=== PATIENT | female | born 1950 | race Caucasian/White ===

== ENCOUNTER 2021-11-25 08:31 | Outpatient (REF) | payer MEDICARE, SELFPAY ==
[2021-11-25 12:31] LABS: TSH reflex Free T4 1.36 uIU/mL (0.32-4.0)
[2021-11-25 12:39] LABS: Alanine Aminotransferase 18 U/L (0-31); Albumin Level 4.4 g/dL (3.5-5.0); Alkaline Phosphatase 68 U/L (39-117); Anion Gap 13 (12-20); Aspartate Amino Transferase 20 U/L (5-31); Bilirubin Total 0.4 mg/dL (0.0-1.0); Blood Urea Nitrogen 18 mg/dL (9-16); Calcium 9.8 mg/dL (8.4-10.2); Carbon Dioxide 24 mmol/L (22-29); Chloride 107 mmol/L (96-108); Cholesterol 170 mg/dL; Estimated Glomerular Filt Rate > 60; Glucose Fasting 105 mg/dL (60-99); HDL Cholesterol 63 mg/dL; LDL Cholesterol Calculated 94 mg/dl; Potassium 4.4 mmol/L (3.3-5.1); Sodium 140 mmol/L (135-145); Triglycerides 66 mg/dL
== END 2021-11-25 08:32 | disposition home or self-care (01) ==
LOC: HO.WFDLDS 08:31
PROVIDERS: Visit Provider Family Medicine
DX: Z00.00 Encounter for general adult medical examination without abnormal findings (principal); Z13.220 Encounter for screening for lipoid disorders; Z13.29 Encounter for screening for other suspected endocrine disorder
CPT/HCPCS: 36415; 80053; 80061; 84443

== ENCOUNTER 2024-07-07 08:53 | Outpatient (AMB) | payer MEDICARE, SELFPAY ==
--- NOTE | 2024-07-07 09:00 | A.OFFPC_ITS ---
Vital Signs 07/07/24 09:03 07/07/24 09:30 Height 5 ft 3.39 in Weight 147 lb BMI 25.7 BP 136/86 Blood Pressure Location Lt brachial Position Sitting Respiration 14 Pulse 116 H 96 Pulse Source Pulse Oximeter Temp 98.9 F Temp Source Oral Pulse Oximetry (%) 98 Oxygen Delivery Method Room Air Intake Visit Reasons: Follow Up Intake Note: New patient visit Chlorine Cell Tender Required: No Allergies No Known Allergies Allergy (Verified 07/07/24 09:00) Tobacco use date assessed: 07/07/24 Last assessed Fall Risk: 07/07/24 Dental Screening Dental Screen Date: 07/07/24 Did you have a dental visit in the last 12 months?: No Did you have a dental problem in the last 6 months where you did not have access to dental care?: No Was dental information given to patient?: Patient declined (Has dentures) HPI HPI Comments History of Present Illness Details This is a 74-year-old female with a past medical history of carotid artery stenosis, elevated fasting glucose, heart murmur and mesenteric ischemia presenting to [facility] care. She was a patient of Dr. Veliz and then transferred to [facility] and is reestablishing with [facility]. Mesenteric ischemia-11 years ago while in [place] s/p mesenteric artery stent. Left carotid artery occlusion-since 50s. She was told it was not amenable to surgery. Per transfer records 2020 also had 50% right carotid artery stenosis in 2019. She does not see vascular. She was referred by Dr. Reddy, but she did not go to the appointment. She is on Plavix and rosuvastatin. She had a physical in January this year. Records transfer pending. Patient said she had a full panel of lab work done at that time, and she was informed that all of the results were satisfactory. Elevated fasting glucose-no history of DM per patient. Heart murmur-reports EKG was normal at her physical this year. Denies CP and dizziness and SOB. She saw cardiology in [place], and she believes that is the last time she had an echocardiogram. She had a mammogram about 6 months ago. She had to go back for additional images. She has another appointment with [facility] mammography in 10/21/2024. She reports colonosocpy is up to date. She says HR and BP are a little elevated. She had a rough morning and was anxious to come in today. ROS: Constitutional: No unexplained weight loss, fever, chills, fatigue or night sweats. Respiratory: No shortness of breath, cough or sputum production. Cardiovascular: No chest pain, chest pressure or chest discomfort. No palpitations or pedal edema. Gastrointestinal: No anorexia, nausea, vomiting or diarrhea. No abdominal pain or blood in stool. Neurologic: No headache, dizziness, syncope, unilateral weakness, ataxia, numbness or tingling in the extremities. Psychiatric: No depression or anxiety Physical exam: Constitutional: Alert, in no distress. Head: Normocephalic. Eyes: Pupils are equal, round and reactive to light. Extraocular muscles intact. Neck: Supple, Full range of motion. No lymphadenopathy. No palpable thyroid masses. Respiratory: Clear to auscultation. Cardiovascular: S1 S2 regular. III/ systolic murmur heard best over the right sternal border. Gastrointestinal: Abdomen soft, non-tender, non-distended. Normal bowel sounds. No palpable masses. Extremities: Warm and well perfused. No clubbing, cyanosis or edema. Bilateral lower extremity varicose veins. [facility] Medical History (Updated 07/07/24 @ 13:03 by ARVIND Buchanan) Atherosclerosis of both carotid arteries Surgical History History of heart artery stent Social History Housing: House Alcohol intake: never Patient Tobacco Use Status: Current everyday Tobacco user Cigarettes Per Day: 3 Years Smoked: 40 e-Cigarette/Vaping Use: Never Used Second Hand Smoke Exposure: Yes service: No Current occupational status: retired Current occupational exposures/hazards: No Cognitive needs: No Hearing needs: No Vision needs: Yes (Glasses) Questionnaire PHQ-9 Over the last 2 weeks, how often have you been bothered by any of the following problems? 1. Little interest or pleasure in doing things: not at all 2. Feeling down, depressed, or hopeless: not at all 3. Trouble falling or staying asleep, or sleeping too much: not at all 4. Feeling tired or having little energy: not at all 5. Poor appetite or overeating: not at all 6. Feeling bad about yourself - or that you are a failure or have let yourself or your family down: not at all 7. Trouble concentrating on things, such as reading the newspaper or watching television: not at all 8. Moving or speaking so slowly that other people could have noticed. Or the opposite - being so fidgety or restless that you have been moving around a lot more than usual: not at all 9. Thoughts that you would be better off or of hurting yourself in some way: not at all Total score: 0 Depression Screening Interpretation: Negative Depression Screening Done: Yes 90566 - PHQ-9 Billing: Yes Source: Developed by Drs. Leonard Guerra, Jody Partida, Jorge Proctor and colleagues, with an educational aakash from [employer]. Thrive Questionnaire Date Thrive assessed: 07/07/24 I am a: Patient What is your living situation today?: I have a steady place to live Within the past 12 months, did the food you bought not last and you didn't have the money to get more?: Never true Within the past 12 months, did you worry whether your food would run out before you got money to buy more?: Never true Do you have trouble paying for medicines?: No Do you have trouble getting transportation to medical appointments?: No Do you have trouble taking care of your child, family member or friend?: No Do you have trouble with day-to-day activities such as bathing, preparing meals, shopping, managing finances, etc.?: No Are you currently unemployed and looking for a job?: No Are you interested in more education?: No Please select the resources that you would like help with: None Currently or been in a relationship where the following occur: No concerns reported THRIVE Score: 0 AUDIT C Alcohol Use Questionnaire (AUDIT-C) 1. How often do you have a drink containing alcohol?: Never 3. How often do you have six or more drinks on one occasion?: Never Total Score: 0 CHAITANYA-7 AMB Questionnaire CHAITANYA-7 Date CHAITANYA - 7 assessed: 07/07/24 Feeling nervous, anxious, or on edge: 0 = Not at all Not being able to stop or control worryin = Not at all Worrying too much about different things: 0 = Not at all Trouble relaxin = Not at all Being so restless that it is hard to sit still: 0 = Not at all Becoming easily annoyed or irritable: 0 = Not at all Feeling afraid as if something awful might happen: 0 = Not at all Total CHAITANYA-7 score (0-4 normal; 5-9 mild; 10-14 moderate; 15-21 severe): 0 Source: Developed by Drs. Leonard Guerra, Jody Partida, Jorge Proctor and colleagues, with an educational aakash from [employer]. CHAITANYA-7 Assessment Billing CHAITANYA-7 Assessment Tool: CHAITANYA-7 Assessment [id number] Physical exam (Primary Care) Vital Signs: Last Vital Signs Temp 98.9 F 07/07/24 09:03 Pulse 96 07/07/24 09:30 Resp 14 07/07/24 09:03 BP 136/86 07/07/24 09:03 Pulse Ox 98 07/07/24 09:03 Oxygen Delivery Method Room Air 07/07/24 09:03 BMI result Body Mass Index 25.7 Tobacco/Smoking Status: Tobacco use Status Tobacco use date assessed 07/07/24 07/07/24 09:08 Patient Tobacco Use Status Current everyday Tobacco 07/07/24 09:08 e-Cigarette/Vaping Use Never Used 07/07/24 09:08 PHQ-9: PHQ-9 Score PHQ-9: Total score 0 07/07/24 09:42 Depression Screening Interpretation: Negative Thrive Assessment: Date of Thrive Assessment Date Thrive assessed 07/07/24 07/07/24 09:42 Currently or been in a relationship where the following occur: No concerns reported Assessment and Plan Assessment & Plan (1) Atherosclerosis of both carotid arteries: Code(s): I65.23 - Occlusion and stenosis of bilateral carotid arteries (2) Mesenteric ischemia: Code(s): K55.9 - Vascular disorder of intestine, unspecified (3) Murmur: Code(s): R01.1 - Cardiac murmur, unspecified (4) Hyperlipidemia: Code(s): E78.5 - Hyperlipidemia, unspecified Qualifiers: Hyperlipidemia type: pure hypercholesterolemia Qualified Code(s): E78.00 - Pure hypercholesterolemia, unspecified Plan I refilled the patient's medications. Referred to vascular surgery. I explained the importance of following with the vascular specialist given her history. Echocardiogram ordered for evaluation of heart murmur. She signed a release today for her medical records. We will need to review her most recent labs from [facility]. Continue avoidance of smoking and alcohol. Recommended low-cholesterol diet and cardiovascular exercise 5 days per week. Blood pressure mildly elevated today which she attributes to the course of her morning. Monitor. Schedule physical exam 03/21/2024. Orders: Orders CA echo transthoracic complete Today R01.1 - Cardiac murmur, unspecified Referrals Vascular Surgery Referral I65.23 - Occlusion and stenosis of bilateral carotid arteries Medications: Refilled clopidogrel 75 mg PO DAILY 90 days 90 tabs 3RF rosuvastatin 20 mg PO BEDTIME 90 days 90 tabs 3RF Coding Level of Care Code Est Pt Level 4 (48413) Complex EM visit Add On G2211 Diagnoses Atherosclerosis of both carotid arteries I65.23 Mesenteric ischemia K55.9 Murmur R01.1 Pure hypercholesterolemia E78.00 Hyperlipidemia type: pure hypercholesterolemia Additional Codes CHAITANYA-7 Assessment Billing - CHAITANYA-7 Assessment Tool: CHAITANYA-7 Assessment [id number] ([id number])
[2024-07-07 09:03] VITALS: BP 136/86; PULSE 116; RESP 14; TEMP 37.2; O2SAT 98; BMI 25.7
[2024-07-07 09:30] VITALS: PULSE 96
== END 2024-07-07 11:16 | disposition home or self-care (01) ==
PROVIDERS: PCP Family Medicine; Visit Provider Physician Assistant Medical
DX: I65.23 Occlusion and stenosis of bilateral carotid arteries (principal); K55.9 Vascular disorder of intestine, unspecified; R01.1 Cardiac murmur, unspecified; E78.00 Pure hypercholesterolemia, unspecified
CPT/HCPCS: 99214; G2211

== ENCOUNTER 2025-03-06 10:19 | Outpatient (AMB) | payer MEDICARE, SELFPAY ==
--- NOTE | 2025-03-06 10:26 | A.OFFPC_ITS ---
Vital Signs 03/06/25 10:30 Height 5 ft 3 in Weight 149 lb 4 oz BMI 26.4 BP 120/72 Blood Pressure Location Rt brachial Position Sitting Respiration 14 Pulse 99 Pulse Source Pulse Oximeter Temp 98.6 F Temp Source Temporal Artery Scan Pulse Oximetry (%) 99 Oxygen Delivery Method Room Air Intake Visit Reasons: Annual PE - see comments Intake Note: Shaina presents in the office today for her annual physical. Allergies No Known Allergies Allergy (Verified 03/06/25 10:28) Tobacco use date assessed: 03/06/25 Fall risk assessment: No Falls in past year Last assessed Fall Risk: 03/06/25 Dental Screening Dental Screen Date: 03/06/25 Did you have a dental visit in the last 12 months?: No Did you have a dental problem in the last 6 months where you did not have access to dental care?: No Was dental information given to patient?: Patient declined HPI HPI Comments History of Present Illness Details This is a 75-year-old female with a past medical history of carotid artery stenosis, elevated fasting glucose, heart murmur and mesenteric ischemia presenting for a physical exam. She endorses a problem with her left ear. She endorses mild discomfort, discharge with a slightly bad odor for 1-2 weeks. She tried flushing with peroxide and water. Denies hearing loss. Denies swimming. Denies fevers, chills or headaches. Mesenteric ischemia-11 years ago while in [place] s/p mesenteric artery stent. Left carotid artery occlusion-since 50s. She was told it was not amenable to surgery. Per transfer records 2020 also had 50% right carotid artery stenosis in 2019. She does not see vascular. I referred her, but she did not make the appointment. She is on Plavix and rosuvastatin and was questioning if she needs to continue t hem today. Elevated fasting glucose-no history of DM per patient. Heart murmur-reports EKG a year or 2 ago. Denies CP and dizziness and SOB. She saw cardiology in [place]. I ordered an echocardiogram, but she did not have this done. She had an abnormal mammogram in 2023, and she is following up with [facility] mammography every 6 months for surveillance imaging. He is unclear about what they were watching. She reports colonoscopy is up-to-date. She will try to obtain the record of this from home. Patient says her immunizations are up-to-date. She declines bone density exam. ROS: Constitutional: No unexplained weight loss, fever, chills, fatigue or night sweats. Eyes: No vision changes, blurry vision, double vision, eye pain, eye redness, eye discharge. ENT: No hearing loss, sneezing, congestion, runny nose or sore throat. See HPI. Respiratory: No shortness of breath, cough or sputum production. Cardiovascular: No chest pain, chest pressure or chest discomfort. No palpitations or pedal edema. Gastrointestinal: No anorexia, nausea, vomiting or diarrhea. No abdominal pain or blood in stool. Genitourinary: No dysuria, hematuria, urinary frequency. Neurologic: No headache, dizziness, syncope, unilateral weakness, ataxia, numbness or tingling in the extremities. Musculoskeletal: No muscle pain, back pain, joint pain or swelling. Hematologic/Lymphatics: No bleeding or bruising. No painful lymph nodes. Skin: No rash Endocrine: No cold or heat intolerance. No polyuria or polydipsia. Psychiatric: No depression or anxiety. No SI/HI. Physical exam: Constitutional: Alert, in no distress. Head: Normocephalic. Eyes: Pupils are equal, round and reactive to light. Extraocular muscles intact. Ear, Nose and Throat: Right canal clear and tympanic membrane normal. Left canal mildly swollen, mild maceration and erythema and whitish yellow debris, tympanic membrane intact, engel and translucent. Negative tech test bilaterally. Mastoids nontender bilaterally. Normal nasal mucosa. No nasal discharge. No oral lesions. Neck: Supple, Full range of motion. No lymphadenopathy. No palpable thyroid masses. Respiratory: Clear to auscultation. Cardiovascular: S1 S2 regular. III/ murmur. No carotid bruits. Gastrointestinal: Abdomen soft, non-tender, non-distended. Normal bowel sounds. No palpable masses. Neurologic: No focal neurological deficits. Symmetric patellar reflexes. Moves all extremities spontaneously. Sensation intact bilaterally. Skin: No rashes Musculoskeletal: No gross deformities. Normal range of motion. Extremities: Warm and well perfused. No clubbing, cyanosis or edema. Intact peripheral pulses bilaterally. Psychiatric: Normal mood and affect [facility] Medical History (Updated 03/07/25 @ 08:34 by ARVIND Buchanan) Abnormal mammogram Right-sided extracranial carotid artery stenosis Otitis externa, left Routine physical examination Atherosclerosis of both carotid arteries Surgical History History of heart artery stent Social History (Updated 03/06/25 @ 10:29 by Janet Deng [place]) Housing: House Alcohol intake: never Patient Tobacco Use Status: Current everyday Tobacco user Cigarettes Per Day: 3 Years Smoked: 40 e-Cigarette/Vaping Use: Never Used Second Hand Smoke Exposure: Yes service: No Current occupational status: retired Current occupational exposures/hazards: No Cognitive needs: No Hearing needs: No Vision needs: Yes (Glasses) Questionnaire PHQ-9 Over the last 2 weeks, how often have you been bothered by any of the following problems? 1. Little interest or pleasure in doing things: not at all 2. Feeling down, depressed, or hopeless: not at all 3. Trouble falling or staying asleep, or sleeping too much: not at all 4. Feeling tired or having little energy: not at all 5. Poor appetite or overeating: not at all 6. Feeling bad about yourself - or that you are a failure or have let yourself or your family down: not at all 7. Trouble concentrating on things, such as reading the newspaper or watching television: not at all 8. Moving or speaking so slowly that other people could have noticed. Or the opposite - being so fidgety or restless that you have been moving around a lot more than usual: not at all 9. Thoughts that you would be better off or of hurting yourself in some way: not at all Total score: 0 Depression Screening Interpretation: Negative Depression Screening Done: Yes 75225 - PHQ-9 Billing: Patient declined-do not bill Source: Developed by Drs. Leonard Guerra, Joyd Partida, Jorge Proctor and colleagues, with an educational aakash from [employer]. Thrive Questionnaire Date Thrive assessed: 03/06/25 I am a: Patient What is your living situation today?: I have a steady place to live Within the past 12 months, did the food you bought not last and you didn't have the money to get more?: Never true Within the past 12 months, did you worry whether your food would run out before you got money to buy more?: Never true Do you have trouble paying for medicines?: No Do you have trouble getting transportation to medical appointments?: Yes Do you have trouble paying your heating and electricity bill?: No Do you have trouble taking care of your child, family member or friend?: No Do you have trouble with day-to-day activities such as bathing, preparing meals, shopping, managing finances, etc.?: No Are you currently unemployed and looking for a job?: No Are you interested in more education?: No Please select the resources that you would like help with: None Currently or been in a relationship where the following occur: No concerns reported THRIVE Score: 1 AUDIT C Alcohol Use Questionnaire (AUDIT-C) 1. How often do you have a drink containing alcohol?: Never Total Score: 0 CHAITANYA-7 AMB Questionnaire CHAITANYA-7 Date CHAITANYA - 7 assessed: 03/06/25 Feeling nervous, anxious, or on edge: 0 = Not at all Not being able to stop or control worryin = Not at all Worrying too much about different things: 0 = Not at all Trouble relaxin = Not at all Being so restless that it is hard to sit still: 0 = Not at all Becoming easily annoyed or irritable: 0 = Not at all Feeling afraid as if something awful might happen: 0 = Not at all Total CHAITANYA-7 score (0-4 normal; 5-9 mild; 10-14 moderate; 15-21 severe): 0 Source: Developed by Drs. Leonard Guerra, Jody Partida, Jorge Proctor and colleagues, with an educational aakash from [employer]. CHAITANYA-7 Assessment Billing CHAITANYA-7 Assessment Tool: CHAITANYA-7 Assessment [id number] Physical exam (Primary Care) Vital Signs: Last Vital Signs Temp 98.6 F 03/06/25 10:30 Pulse 99 03/06/25 10:30 Resp 14 03/06/25 10:30 BP 120/72 03/06/25 10:30 Pulse Ox 99 03/06/25 10:30 Oxygen Delivery Method Room Air 03/06/25 10:30 BMI result Body Mass Index 26.4 Tobacco/Smoking Status: Tobacco use Status Tobacco use date assessed 03/06/25 03/06/25 10:33 Patient Tobacco Use Status Current everyday Tobacco 03/06/25 10:29 e-Cigarette/Vaping Use Never Used 03/06/25 10:29 PHQ-9: PHQ-9 Score PHQ-9: Total score 0 03/06/25 10:38 Depression Screening Interpretation: Negative Thrive Assessment: Date of Thrive Assessment Date Thrive assessed 03/06/25 03/06/25 10:33 Currently or been in a relationship where the following occur: No concerns reported Coding Level of Care Code Est Pt Prev Care >65y(06541) Diagnoses Acute otitis externa of left ear, unspecified type H60.502 Otitis externa type: unspecified type Chronicity: acute Atherosclerosis of both carotid arteries I65.23 Murmur R01.1 Elevated fasting glucose R73.01 Pure hypercholesterolemia E78.00 Hyperlipidemia type: pure hypercholesterolemia Routine physical examination Z00.00 Abnormal mammogram R92.8 Additional Codes CHAITANYA-7 Assessment Billing - CHAITANYA-7 Assessment Tool: CHAITANYA-7 Assessment [id number] ([id number]) Assessment & Plan Assessment & Plan (1) Otitis externa, left: Code(s): H60.92 - Unspecified otitis externa, left ear Category: Medical Qualifiers: Otitis externa type: unspecified type Chronicity: acute Qualified Code(s): H60.502 - Unspecified acute noninfective otitis externa, left ear (2) Atherosclerosis of both carotid arteries: Code(s): I65.23 - Occlusion and stenosis of bilateral carotid arteries Category: Medical (3) Murmur: Code(s): R01.1 - Cardiac murmur, unspecified Category: Medical (4) Elevated fasting glucose: Code(s): R73.01 - Impaired fasting glucose Category: Medical (5) Hyperlipidemia: Code(s): E78.5 - Hyperlipidemia, unspecified Category: Medical Qualifiers: Hyperlipidemia type: pure hypercholesterolemia Qualified Code(s): E78.00 - Pure hypercholesterolemia, unspecified (6) Routine physical examination: Code(s): Z00.00 - Encounter for general adult medical examination without abnormal findings Category: Medical (7) Abnormal mammogram: Code(s): R92.8 - Other abnormal and inconclusive findings on diagnostic imaging of breast Category: Medical Plan Patient is seen today for a routine physical. As part of this visit we reviewed the following issues, which are considered and essential part of preventative health in this age group: - Breast Cancer screening - Annual Perinatal Specialist exam - Screening for colon cancer - Blood pressure screening - Cholesterol screening - Osteoporosis prevention including calcium/vitamin D intake, weight bearing exercise & smoking cessation - Nutritional and exercise counseling - Counseling of injury prevention including fire prevention, smoke alarms and seat belt usage - Screening for depressio - Education about skin cancer - Recommendations about immunizations - Recommendation of an eye exam - Screening for substance abuse - Genetic cancer risk screening Patient will be treated with Ciprodex drops. Administration reviewed. Advised to follow up if symptoms are not beginning to improve after 48-72 hours or if they do not resolve entirely with a course of medication. Warning signs warranting ER evaluation reviewed. She will have her fasting lab work completed. Advised patient to remain on statin and Plavix. I discussed the importance of following up with vascular surgery, and she understands, and she agrees to a referral to [facility]. I also explained the importance of having the echocardiogram for evaluation of her heart murmur. Once resulted we will discuss referral to Cardiology. She will have this done at [facility]. Declined follow up for recheck. Physical is due in a year. Orders: Orders Hemoglobin A1c 03/06/25 Z00.00 - Encounter for general adult medical examination without abnormal findings Comprehensive Met. Panel 03/06/25 I65.22 - Occlusion and stenosis of left carotid artery, K55.9 - Vascular disorder of intestine, unspecified, Z00.00 - Encounter for general adult medical examination without abnormal findings Lipid Panel 03/06/25 E78.5 - Hyperlipidemia, unspecified, I65.22 - Occlusion and stenosis of left carotid artery, K55.9 - Vascular disorder of intestine, unspecified, Z00.00 - Encounter for general adult medical examination without abnormal findings Complete Blood Count no Diff 03/06/25 I65.22 - Occlusion and stenosis of left carotid artery, K55.9 - Vascular disorder of intestine, unspecified, Z00.00 - Encounter for general adult medical examination without abnormal findings CA echo transthoracic complete Today R01.1 - Cardiac murmur, unspecified Referrals Vascular Surgery Referral I65.21 - Occlusion and stenosis of right carotid artery, I65.22 - Occlusion and stenosis of left carotid artery Medications: New ciprofloxacin-dexamethasone 0.3-0.1 % 4 drps otic (ear) left BID 7 days 7.5 mL 0RF Refilled clopidogrel 75 mg PO DAILY 90 days 90 tabs 3RF rosuvastatin 20 mg PO BEDTIME 90 days 90 tabs 3RF
[2025-03-06 10:30] VITALS: BP 120/72; PULSE 99; RESP 14; TEMP 37; O2SAT 99; BMI 26.4
--- OUTSIDE RECORDS SUMMARY | 2025-03-06 11:38 | XMS_ITS | Patient Health Record ---
Demographics Address [address] [place] [address] Mobile Preferred Language en Marital Status Unknown Jainism Affiliation Unknown Race Unknown Ethnic Group Unknown Author Organization [facility] Address [address] [place] [id number] Care Team Providers Care Biology Instructor Name Role Phone [facility] Primary Care Provider [phone] Sunil Corrina Mota Unavailable [phone] ALLERGIES No Known Allergies REASON FOR REFERRAL No Information MEDICATIONS Medication SIG (Take, Route, Frequency, Duration) Notes Start Date End Date Status Rosuvastatin Calcium 20 MG 1 tablet Oral ly Once a day for 90 days Active Plavix 75 MG 1 tablet Orally Once a day for 90 days Active Multi Vitamin - 1 tablet Orally Once a day Active Ciprofloxacin HCl 0.3 % 3 drops in left ear Ophthalmic two times a day for 7 days 02/11/2023 Not-Taking SOCIAL HISTORY Tobacco Use: Social History Observation Description Date Details (start date - stop date) Current Smoker NA - NA Sex Assigned At : Social History Observation Description Sex Assigned At Female Household Question Answer Notes Marital status: Number of adults in household: 2 Tobacco Use/Smoking Question Answer Notes Tobacco use: current smoker How many cigarettes a day do you smoke? 5 or les s Section Notes: Lives in [place], [place] with sister. Lives in [place], [place] with sister. Lives in [place] with sister. Lives in [place] with sister. PROBLEMS Problem Type ICD Code Onset Dates Problem Status W/U Status Risk SNOMED Code Notes Problem Mixed hyperlipidemia (E78.2) Active confirmed 574550000 Problem Murmur, cardiac (R01.1) Active confirmed 61153374 Problem Elevated blood pressure reading without diagnosis of hypertension (R03.0) Active confirmed 353868574 Problem Petechial rash (R23.3) Active confirmed [id number] Encounters Encounter Location Date Provider Diagnosis [facility], [address] [phone] 08/16/2024 Corrina Mota PLAN OF TREATMENT Pending Test Test Name Order Date Ultrasound : Leg, right 01/26/2024 X ray : Knee, right 01/26/2024 Echocardiogram 08/19/2023 DEXA 08/19/2023 Electrocardiogram (EKG) 02/11/2023 MAMMOGRAM, SCREENING 01/26/2024 Future Test Test Name Order Date 1,25OH VITAMIN D 08/19/2023 APOLIPOPROTEIN B 08/19/2023 CBC (COMPLETE BLOOD COUNT) WITH DIFF COMPREHENSIVE METABOLIC PANEL 08/19/2023 CRP, HIGH SENSITIVITY 08/19/2023 INSULIN 08/19/2023 MICROALBUMIN, URINE 08/19/2023 URIC ACID 08/19/2023 LIPID PANEL 08/19/2023 THYROID PANEL 08/19/2023 UA W/REFLEX CULTURE 08/19/2023 Insurance Providers Payer Name Payer Address Payer Phone Subscriber Number Group Number Insured Name Patient Relationship to Insured Coverage Start Date Coverage End Date [facility] Medicare Advantage [address] [address] [place], [place] [id number] LISA COYLE Self - patient is the insured MEDICAL (GENERAL) HISTORY Medical History History ICD Code chicken pox as a child pneumonia Surgical History Surgery Date(Month/Year)
--- OUTSIDE RECORDS SUMMARY | 2025-03-06 11:38 | XMS_ITS ---
Demographics Address [address] [place] [address] Mobile Preferred Language en Marital Status Unknown Mormonism Affiliation Unknown Race Unknown Ethnic Group Unknown Author Organization [facility], [facility] Address [address] [place] [id number] Care Team Providers Care Helper Driver Name Role Phone BOZENA [facility] Primary Care Provider [phone] Sunil Corrina Mota [phone] REASON FOR VISIT Left ear infection MEDICATIONS Medication SIG (Take, Route, Frequency, Duration) Notes Start Date End Date Status Rosuvastatin Calcium 20 MG 1 tablet Orally Once a day for 90 days Active Plavix 75 MG 1 tablet Orally Once a day for 90 days Active Multi Vitamin - 1 tablet Orally Once a day Active Ciprofloxacin HCl 0.3 % 3 drops in left ear Ophthalmic two times a day for 7 days 02/11/2023 Not-Taking Amoxicillin-Pot Clavulanate 875-125 MG 1 tablet Orally every 12 hrs for 5 days 02/23/2024 02/26/2024 Active SOCIAL HISTORY Sex Assigned At : Social History Observation Description Sex Assigned At Female Encounters Encounter Location Date Provider Diagnosis [facility], [address] [phone] 02/23/2024 Corrina Mota Acute left otitis media H66.92 ASSESSMENTS Encounter Date Diagnosis Assessment Notes Treatment Notes Treatment Clinical Notes Section Notes 02/23/2024 Acute left otitis media (ICD-10 - H66.92) PLAN OF TREATMENT Medication Medication Name Sig Start Date Stop Date Notes Amoxicillin-Pot Clavulanate 875-125 MG 1 tablet Orally every 12 hrs for 5 days 02/23/2024 02/26/2024 Progress Notes * JUJU COYLE:1950 ( 74 yo F)Acc No.[id number]:02/23/2024 Patient:??JONNA LISA :1950?Age:74 Y?Sex:Fe male Phone: Address:[address] [place] [address] * Refills?? Start Amoxicillin-Pot Clavulanate Tablet, 875-125 MG, Orally, 10 Tablet, 1 tablet, every 12 hrs, 5 days, Refills=0 Subjective: * Chief Complaints: * ?Left ear infection * Medical History:?? * Surgical History:?? * Hospitalization/Major Diagno stic Procedure:?? * Medications:??TakingMulti Vi tamin - Tablet 1 tablet Orally Once a day Rosuvastatin Calcium 20 MG Tablet 1 tablet Orally Once a day Plavix 75 MG Tablet 1 tablet Orally Once a day Taking Multi Vitamin - Tablet 1 tablet Orally Once a day Taking Rosuvastatin Calcium 20 MG Tablet 1 tablet Orally Once a day Taking Plavix 75 MG Tablet 1 tablet Orally Once a day Not-TakingCiprofloxacin HCl 0.3 % Solution 3 drops in left ear Ophthalmic two times a day Not-Taking Ciprofloxacin HCl 0.3 % Solution 3 drops in left ear Ophthalmic two times a day Objective: Assessment: * Assessment: 1.??Acute left otitis media - H66.92 (Primary)?? Plan: * Treatment: * Procedure Codes:?? * true * Date:??
--- OUTSIDE RECORDS SUMMARY | 2025-03-06 11:39 | XMS_ITS ---
Demographics Address [address] [place] [address] Mobile Preferred Language en Marital Status Unknown Faith Affiliation Unknown Race Unknown Ethnic Group Unknown Author Organization [facility], [facility] Address [address], [place] [id number] Care Team Providers Care Oral Surgeon Name Role Phone [facility] Primary Care Provider [phone] Corrina Mota [phone] REASON FOR VISIT f/u 6M wellness SOCIAL HISTORY Sex Assigned At : Social History Observation Description Sex Assigned At Female Encounters Encounter Location Date Provider Diagnosis [facility], [facility] [address], [place] [phone] 08/16/2024 Corrina Mota PLAN OF TREATMENT No Information Progress Notes * LIVIANABILA BAUERANAB:1950 ( 75 yo F)Acc No.[id number]:08/16/2024 Progress Notes Patient:??LIVIANABILA BAUERA Provider:??Corrina Mota DNP :1950?Age:74 Y?Sex:Fe male Date:08/16/2024 Phone: Address: [address] [id number] Pcp:[facility] Subjective: * Chief Complaints: * ?1. f/u 6M wellness. * Medical History:?? Objective: Assessment: Plan: * Treatment: * Billing Information: * Visit Code:?? * Procedure Codes:?? * Sign off status: Pending * Provider:??Corrina Mota DNP Date:??
== END 2025-03-06 11:08 | disposition home or self-care (01) ==
PROVIDERS: PCP Physician Assistant Medical; Visit Provider Physician Assistant Medical
DX: H60.502 Unspecified acute noninfective otitis externa, left ear (principal); I65.23 Occlusion and stenosis of bilateral carotid arteries; R01.1 Cardiac murmur, unspecified; R73.01 Impaired fasting glucose; E78.00 Pure hypercholesterolemia, unspecified; Z00.00 Encounter for general adult medical examination without abnormal findings; R92.8 Other abnormal and inconclusive findings on diagnostic imaging of breast

== ENCOUNTER → 2025-03-06 10:19 | Outpatient (BNVA) | payer MEDICARE, SELFPAY | PROVIDERS: PCP Physician Assistant Medical; Visit Provider Physician Assistant Medical | DX: Z00.00 Encounter for general adult medical examination without abnormal findings (principal); H60.502 Unspecified acute noninfective otitis externa, left ear; I65.23 Occlusion and stenosis of bilateral carotid arteries; R01.1 Cardiac murmur, unspecified; R73.01 Impaired fasting glucose; E78.00 Pure hypercholesterolemia, unspecified; R92.8 Other abnormal and inconclusive findings on diagnostic imaging of breast; Z79.02 Long term (current) use of antithrombotics/antiplatelets; Z79.899 Other long term (current) drug therapy | CPT/HCPCS: 96127; 99397 ==

== ENCOUNTER 2025-03-13 08:17 | Outpatient (REF) | payer MEDICARE, SELFPAY ==
[2025-03-13 11:22] LABS: Hematocrit 40.9 % (37.0-47.0); Hemoglobin 13.5 g/dl (12.0-16.0); Mean Corpuscular Hemoglobin 30.8 pg (27.0-33.0); Mean Corpuscular Volume 93.2 fL (80.0-98.0); Mean Platelet Volume 10.5 fL (9.4-12.3); Platelet Count 242 X10*3/uL (160-400); Red Blood Count 4.39 X10*6/uL (4.20-5.50); Red Cell Distribution Width 14.2 % (11.0-16.0); White Blood Count 8.3 X10*3/uL (4.8-10.8)
[2025-03-13 11:35] LABS: Estimated Average Glucose 105 mg/dL; Hemoglobin A1C 121.4383 umol/L; Hemoglobin A1c % 5.3 % (<6.0); Total Hemoglobin (HGBA1C) 3585.8831 umol/L
[2025-03-13 13:42] LABS: Alanine Aminotransferase 22 U/L (0-31); Albumin Level 4.2 g/dL (3.5-5.0); Anion Gap 12 (12-20); Aspartate Amino Transferase 29 U/L (5-31); Bilirubin Total 0.2 mg/dL (0.0-1.0); Blood Urea Nitrogen 24 mg/dL (9-16); Calcium 9.5 mg/dL (8.4-10.2); Carbon Dioxide 25 mmol/L (22-29); Chloride 108 mmol/L (96-108); Cholesterol 154 mg/dL (<200); Estimated Glomerular Filt Rate > 60; Glucose Random 103 mg/dL (60-115); HDL Cholesterol 69 mg/dL (>40); LDL Cholesterol Calculated 77 mg/dL (<100); Potassium 4.2 mmol/L (3.3-5.1); Sodium 141 mmol/L (135-145); Total Protein 6.6 g/dL (6.5-8.0); Triglycerides 41 mg/dL (<150)
[2025-03-13 15:18] LABS: Alkaline Phosphatase 56 U/L (39-117)
== END 2025-03-13 08:18 | disposition home or self-care (01) ==
LOC: HO.WFDLDS 08:17
PROVIDERS: Visit Provider Physician Assistant Medical
DX: Z00.00 Encounter for general adult medical examination without abnormal findings (principal); E78.5 Hyperlipidemia, unspecified; K55.9 Vascular disorder of intestine, unspecified; I65.22 Occlusion and stenosis of left carotid artery; Z13.1 Encounter for screening for diabetes mellitus
CPT/HCPCS: 36415; 80053; 80061; 83036; 85027

== ENCOUNTER 2025-03-28 14:41 | Outpatient (AMB) | payer MEDICARE, SELFPAY ==
--- NOTE | 2025-03-28 14:42 | MHC.OFFVIS ---
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 Pt has no complaints. Pt also has hx of stent/ballooning in mesentaric artery in [place]. Distillation Operator Required: No Accompanied by: Self / Same As Patient Allergies No Known Allergies Allergy (Verified 03/28/25 14:48) HPI HPI STUDIO MUSICIAN/Occlusion and stenosis of L/R carotid artery: Details: The patient is a 75-year-old female presenting with concerns related to carotid and mesenteric artery disease. She previously underwent mesenteric artery stenting in [place] due to arterial blockage, followed by balloon angioplasty to address non-functionality of the stent. She experienced symptoms of abdominal pain prior to these interventions but now reports no current issues with eating or abdominal pain. Her dietary intake remains unrestricted. 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 The right carotid artery has demonstrated some blockage on previous assessments. The patient's smoking history includes tapering to three cigarettes daily about 20 years ago. She has no reported history of diabetes or other significant comorbidities relevant to her vascular condition. Of note she is being maintained on statin and Plavix. [facility] Medical History Abnormal mammogram Right-sided extracranial carotid artery stenosis Otitis externa, left Routine physical examination Atherosclerosis of both carotid arteries Surgical History History of heart artery stent Social History Housing: House Alcohol intake: never Patient Tobacco Use Status: Current everyday Tobacco user Cigarettes Per Day: 3 Years Smoked: 40 e-Cigarette/Vaping Use: Never Used Second Hand Smoke Exposure: Yes service: No Current occupational status: retired Current occupational exposures/hazards: No Cognitive needs: No Hearing needs: No Vision needs: Yes (Glasses) Review of Systems Const All systems reviewed & are unremarkable except as noted in HPI and below Reports no additional complaints ENT Reports Normal hearing present Card Denies chest pain, Denies chest pain at rest, Denies chest pain with activity and Denies pedal edema Resp Denies cough GI Denies abdominal pain Musc Denies abnormal gait, Denies muscle cramps and Denies radiating pain into limb Skin/Breast Denies skin ulcer and Denies wounds Neuro Reports Normal hearing present and Denies abnormal gait Psych Reports no additional complaints Physical Exam Vital Signs: BMI result Body Mass Index 26.4 Const General: cooperative, healthy appearing and comfortable Orientation/consciousness: oriented to person, oriented to place and oriented to time HEENT Head: Yes normal to inspection Neck Neck: Yes normal visual inspection Carotids: no bruits Chest Chest palpation & inspection: normal inspection of the chest Resp Effort & Inspection: normal respiratory effort and able to speak in complete sentences Auscultation: clear to auscultation bilaterally, no crackles, no rales, no rhonchi and no wheezes Cardio Rate: regular rate Rhythm: regular rhythm Heart sounds: S1 normal heart sound present and S2 normal heart sound present Bruits: no carotid bruits Peripheral pulses: Peripheral pulses 2+ throughout GI Inspection: Yes normal to inspection Skin Wounds: no wounds Hair: normal Neuro General: oriented to person, oriented to place and oriented to time Cranial nerves: Yes CN's II-XII intact bilaterally and Yes Normal hearing present Cognition (Neuro): normal cognition Motor exam (neuro): 5/5 motor strength present throughout Extrem Other: venous exam: No significant superficial varicosities or spider telangiectasias, minimal edema General: No clubbing, No cyanosis and No edema Psych Appearance: grossly normal Mental Status: mental status grossly normal Speech and movement: Normal speech and movement present Assessment & Plan Assessment & Plan (1) Bilateral carotid artery stenosis: Code(s): I65.23 - Occlusion and stenosis of bilateral carotid arteries Category: Medical Plan: In short patient has a prior history of carotid occlusion. It has been a little bit since she has had a surveillance follow-up.. We have reviewed signs and symptoms of a stroke. We also discussed risk factor modification inclusive a healthy diet low in cholesterol. We will schedule the patient for routine carotid ultrasound. Should there be any changes or signs or symptoms of a stroke we will be happy to see them back sooner. Thank you for allowing us to participate in this patient's care. If there are any questions or concerns please do not hesitate to contact us. (2) Chronic mesenteric ischemia: Code(s): K55.1 - Chronic vascular disorders of intestine Category: Medical Plan: It appears that she has had prior SMA stenting with reintervention with plasty. At the current time she is asymptomatic denies any food fear loss of weight or appetite changes. It is good to get a baseline ultrasound of this as well. Once again she will follow up with us for her mesenteric and carotids. Thank you for allowing us to assist in her care. Orders: Orders US abdominal aortic aneurysm 1 Week K55.1 - Chronic vascular disorders of intestine US carotid duplex BI 1 Week I65.23 - Occlusion and stenosis of bilateral carotid arteries Coding Level of Care Code New Pt Level 4 (62914) Complex EM visit Add On G2211 Diagnoses Bilateral carotid artery stenosis I65.23 Chronic mesenteric ischemia K55.1
[2025-03-28 14:43] VITALS: BMI 26.4
== END 2025-03-28 15:03 | disposition home or self-care (01) ==
LOC: HO.HVS 14:41
PROVIDERS: PCP Physician Assistant Medical; Visit Provider Surgery Vascular Surgery
DX: I65.23 Occlusion and stenosis of bilateral carotid arteries (principal); K55.1 Chronic vascular disorders of intestine
CPT/HCPCS: 99204; G2211

== ENCOUNTER → 2025-03-28 14:41 | Outpatient (BNVA) | payer MEDICARE, SELFPAY | PROVIDERS: PCP Physician Assistant Medical; Visit Provider Surgery Vascular Surgery | DX: I65.23 Occlusion and stenosis of bilateral carotid arteries (principal); K55.1 Chronic vascular disorders of intestine | CPT/HCPCS: 99202 ==

== ENCOUNTER 2025-08-15 14:54 | Outpatient (AMB) | payer MEDICARE, SELFPAY ==
--- NOTE | 2025-08-15 14:55 | MHC.PC.OV ---
Vital Signs 08/15/25 15:00 Height 5 ft 3 in Weight 143 lb 8 oz BMI 25.4 BP 136/75 Blood Pressure Location Rt brachial Position Sitting Respiration 16 Pulse 115 H Pulse Source Pulse Oximeter Temp 97.8 F Temp Source Oral Pulse Oximetry (%) 100 Oxygen Delivery Method Room Air Intake Visit Reasons: symptoms of being blocked again Intake Note: patient here c/o symptoms of being blocked again. she has pain after she eats Clerical Order Filler Required: No Is last menstrual period known: No Post menopausal: No Patient : No Allergies No Known Allergies Allergy (Verified 08/15/25 15:09) Medication List - Last Reconciled 08/15/25 by Kumar Edwards CNP clopidogrel 75 mg PO DAILY 90 days rosuvastatin 20 mg PO BEDTIME 90 days Tobacco use date assessed: 08/15/25 Fall risk assessment: No Falls in past year Last assessed Fall Risk: 08/15/25 Dental Screening Dental Screen Date: 08/15/25 Did you have a dental visit in the last 12 months?: No Did you have a dental problem in the last 6 months where you did not have access to dental care?: No Was dental information given to patient?: No HPI HPI Comments History of Present Illness Details 75-year-old female presents with complaints of persistent tenderness to her epigastric region, worst after eating (progressed to sharp pain. Her pain is 4/10 before eating and 9/10 after eating. It takes 5-6 hours after eating for her pain to return to 4/10. He has not been eating much as s result of increased pain with eating. Her symptoms started 2 weeks ago and has progressively worsened. She denies associated symptoms. She denies bowel changes. She reports similar symptoms when her mesenteric artery was blocked 15 years ago; she had nausea and vomiting then. [facility] Medical History Abnormal mammogram Right-sided extracranial carotid artery stenosis Otitis externa, left Routine physical examination Atherosclerosis of both carotid arteries Surgical History History of heart artery stent Social History Housing: House Alcohol intake: never Patient Tobacco Use Status: Current everyday Tobacco user Cigarettes Per Day: 3 Years Smoked: 40 Packs per year/per ci.00 e-Cigarette/Vaping Use: Never Used Second Hand Smoke Exposure: Yes Patient : No service: No Current occupational status: retired Current occupational exposures/hazards: No Cognitive needs: No Hearing needs: No Vision needs: Yes (Glasses) Questionnaire Thrive Questionnaire Date Thrive assessed: 03/06/25 I am a: Patient What is your living situation today?: I have a steady place to live Within the past 12 months, did the food you bought not last and you didn't have the money to get more?: Never true Within the past 12 months, did you worry whether your food would run out before you got money to buy more?: Never true Do you have trouble paying for medicines?: No Do you have trouble getting transportation to medical appointments?: Yes Do you have trouble paying your heating and electricity bill?: No Do you have trouble taking care of your child, family member or friend?: No Do you have trouble with day-to-day activities such as bathing, preparing meals, shopping, managing finances, etc.?: No Are you currently unemployed and looking for a job?: No Are you interested in more education?: No Please select the resources that you would like help with: None Currently or been in a relationship where the following occur: No concerns reported THRIVE Score: 1 CHAITANYA-7 AMB Questionnaire CHAITANYA-7 Date CHAITANYA - 7 assessed: 03/06/25 Source: Developed by Drs. Leonard Guerra, Jody Partida, Jorge Proctor and colleagues, with an educational aakash from [employer]. Review of Systems Const Details: Const Denies chills, Denies fatigue, Denies fever(s), Denies headache(s) and Denies weakness ENT Denies dizziness and Denies headache(s) Card Denies chest pain, Denies lightheadedness, Denies dyspnea and Denies other (Palpitations) Resp Denies cough, Denies dyspnea, Denies wheezing and Denies other ( shortness of breath) GI Reports as per HPI Denies hematuria and Denies dysuria Musc Denies abnormal gait, Denies myalgias, Denies arthralgias, Denies numbness and Denies tingling Skin/Breast Denies rash, Denies unusual bruising and Denies wounds Neuro Denies abnormal gait, Denies dizziness, Denies headache(s), Denies memory loss, Denies numbness, Denies Sensory deficit (Neuro), Denies tingling and Denies weakness Psych Denies anxiety, Denies depression, Denies memory loss Endo Denies cold intolerance, Denies fatigue, Denies heat intolerance, Denies polydipsia and Denies polyuria Aller/Immun Denies wheezing Physical exam (Primary Care) Vital Signs: Last Vital Signs Temp 97.8 F 08/15/25 15:00 Pulse 115 H 08/15/25 15:00 Resp 16 08/15/25 15:00 BP 136/75 08/15/25 15:00 Pulse Ox 100 08/15/25 15:00 Oxygen Delivery Method Room Air 08/15/25 15:00 BMI result Body Mass Index 25.4 Tobacco/Smoking Status: Tobacco use Status Tobacco use date assessed 08/15/25 08/15/25 15:03 Patient Tobacco Use Status Current everyday Tobacco 08/15/25 14:57 e-Cigarette/Vaping Use Never Used 08/15/25 14:57 Thrive Assessment: Date of Thrive Assessment Date Thrive assessed 03/06/25 08/15/25 14:57 Currently or been in a relationship where the following occur: No concerns reported Const Other: General: no acute distress and well developed Nutritional Appearance: well nourished Orientation/consciousness: patient oriented x3 HENMT Head: Yes normocephalic and Yes atraumatic Eyes General: appearance normal, both eyes and all related structures Pupils: Equal, round and reactive pupils present EOM: EOMs intact bilaterally Resp Effort & Inspection: normal respiratory effort Auscultation: clear to auscultation bilaterally Cardio Rate: regular rate Rhythm: regular rhythm Heart sounds: S1 normal heart sound present, S2 normal heart sound present, no gallops, no murmurs and no rubs GI Palpation (GI): No Abdominal aortic bruit present, Soft to palpation, nontender, No hepatosplenomegaly present and No Rebound tenderness present Auscultation: normal bowel sounds General: Yes no CVA tenderness Back/Spine/Pelvis Back: no CVA tenderness Cervical Spine: cervical ROM normal and No Cervical spine tenderness Thoracic/Lumbar Spine: thoraco-lumbar ROM normal, No pain with thoraco-lumbar ROM, No thoracic spinal tenderness and No lumbar spinal tenderness Extrem General: Yes normal to inspection, No edema and No calf tenderness Skin General: warm and dry. Normal skin color. Normal skin turgor Neuro General: patient oriented x3, gait normal and no focal neuro deficit Cranial nerves: Yes Equal, round and reactive pupils present Cognition (Neuro): normal cognition Gait exam (Neuro): Normal gait present Sensory Exam: No Sensory deficit (Neuro) Psych Appearance: grossly normal Affect: normal affect Attitude: cooperative Thought process: Normal thought process present Coding Level of Care Code Est Pt Level 4 (61784) Diagnoses Epigastric pain R10.13 Assessment & Plan Assessment & Plan (1) Epigastric pain: Code(s): R10.13 - Epigastric pain Category: Medical Plan: Normal abdominal exam. Pain is not reproducible. High suspicion for acid reflux and low suspicion for mesenteric artery blockage. Omeprazole as prescribed. Avoid fatty or greasy foods. CT ordered; will review results and make changes as needed. Contact PCP or go to the ED with worsening or new symptoms. Verbalized understanding and agreed with treatment. Orders: Orders CT abdomen w IV con Today R10.13 - Epigastric pain Medications: New omeprazole 20 mg PO DAILY 30 caps 0RF 30 days
[2025-08-15 15:00] VITALS: BP 136/75; PULSE 115; RESP 16; TEMP 36.6; O2SAT 100; BMI 25.4
== END 2025-08-15 15:54 | disposition home or self-care (01) ==
LOC: HO.HMCFM 14:54
PROVIDERS: PCP Physician Assistant Medical; Visit Provider Nurse Practitioner Family
DX: R10.13 Epigastric pain (principal)

== ENCOUNTER → 2025-08-15 14:54 | Outpatient (BNVA) | payer MEDICARE, SELFPAY | PROVIDERS: PCP Physician Assistant Medical; Visit Provider Nurse Practitioner Family | DX: R10.13 Epigastric pain (principal) | CPT/HCPCS: 99212 ==

== ENCOUNTER 2025-08-24 11:07 | Outpatient (REF) | payer MEDICARE, SELFPAY ==
--- NOTE | ~2025-08-24 | CT_ITS ---
EXAMINATION: CT ABDOMEN WITH CONTRAST CLINICAL INFORMATION: R 10.13. Epigastric pain. COMPARISON: None available. TECHNIQUE: Contiguous axial thin section helical images of the abdomen were performed following the administration of oral contrast and 85 mL of Omnipaque 350 intravenous contrast. The data set was reformatted in the coronal and sagittal planes and reviewed on an independent workstation. No reported immediate complications. This CT examination was performed using dose optimization techniques as appropriate, variously including the following: *Automated exposure control *Adjustment of mA and/or kV according to patient size (this includes techniques or standardized protocols for targeted exams where dose is matched to indication/reason for exam; i.e. extremities or head) *Use of iterative reconstruction technique. DLP: 364 mGy centimeter. FINDINGS: LUNG BASES: Pulmonary mosaic pattern, subtle. LIVER, GALLBLADDER, AND BILIARY TREE: Liver measures 15 cm. Decreased enhancement pattern. There is a 8 cm lobulated nonenhancing fluid density lesion in segment 4 A4 B and a 0.5 cm nonenhancing fluid density lesion, right hepatic lobe adjacent to gallbladder. Main portal veins, hepatic veins and intrahepatic portion of the IVC are patent. Gallbladder is contracted without pericholecystic fluid collection or gallbladder wall thickening. Common bile duct measures 4 mm. PANCREAS: No focal mass. No peripancreatic fluid collection. No main pancreatic ductal dilatation. SPLEEN: 8 cm. No focal mass. ADRENAL GLANDS AND KIDNEYS: No nodular lesions. No hydronephrosis. No gross nephrolithiasis. Bilateral extrarenal pelvises. Normal enhancement pattern of the renal parenchyma. Normal urinary excretion into the collecting system. Multifocal different sizes and less than 2 cm nonenhancing fluid density lesions, left kidney. Subcentimeter cyst, right kidney. BOWEL LOOPS: Abundant stool. Contrast and gas filled nondistended small bowel loops and large intestine. No intestinal obstruction pattern. No ascites. No pneumoperitoneum. No intestinal wall thickening. No pneumatosis intestinalis. No ascites. No gross pneumoperitoneum in the abdomen. LYMPH NODES: No specific prominent mesenteric and retroperitoneum. VASCULAR: There is a stent in the proximal segment of the superior mesenteric artery without IV contrast. There is a nonenhancing isointense lumen of the superior mesenteric artery segment just distal to the stent with distal recanalization of the contrast from likely collateral flow. Mixed plaques throughout the abdominal aorta wall and the iliac arteries. Mixed plaques in the common iliac arteries resulting in 50-60% stenosis. No aneurysm or dissection, abdominal aorta. Calcified plaques in the splenic artery and the origin of the main renal arteries. Calcified plaques in the descending thoracic aorta likely coronary arteries. BONES: Multilevel thoracolumbar spondylosis. Bilateral facet joint hypertrophy at L4-5 and L5-S1. No acute fracture or gross listhesis. CT/CT abdomen w IV con IMPRESSION: Occluded stent and proximal superior mesenteric artery with distal recanalization via collateral flow. 50-60% stenosis secondary to mixed plaques in both common iliac arteries. Atherosclerosis disease. Cystic lesions, liver and spleen. Fleischner guidelines were followed. Electronically signed by: Eliud Rodriguez MD 08/24/2025 01:34 PM EDT
[2025-08-24] MEDS: iohexoL 350 MG/ML 100 ML INFUS..BTL IV (13:14)
[2025-08-24] MEDS: Barium Sulfate Oral (Mocha) 450 ML ORAL.SUSP PO (13:14)
[2025-08-25 13:39] LABS: Creatinine POC 0.8 mg/dL (0.5-1.4); GFR POC > 60
== END 2025-08-24 11:08 | disposition home or self-care (01) ==
LOC: HO.CT 11:07
PROVIDERS: PCP Nurse Practitioner Family; Visit Provider Nurse Practitioner Family
DX: R10.13 Epigastric pain (principal)
CPT/HCPCS: 74160; 82565; Q9967

== ENCOUNTER → 2025-08-24 11:14 | Outpatient (BNV) | payer MEDICARE, SELFPAY | PROVIDERS: PCP Nurse Practitioner Family; Visit Provider Radiology Diagnostic Radiology | DX: K55.1 Chronic vascular disorders of intestine (principal); I70.8 Atherosclerosis of other arteries; K76.89 Other specified diseases of liver; D73.4 Cyst of spleen | CPT/HCPCS: 74160 ==

== ENCOUNTER 2025-09-14 11:17 | Outpatient (AMB) | payer MEDICARE, SELFPAY ==
--- NOTE | 2025-09-14 11:20 | A.OFFPC_ITS ---
Vital Signs 09/14/25 11:26 09/14/25 11:49 Height 5 ft 3 in Weight 138 lb 4 oz BMI 24.5 BP 116/64 Blood Pressure Location Rt brachial Position Sitting Respiration 16 Pulse 130 H 116 H Pulse Source Pulse Oximeter Temp 98 F Temp Source Temporal Artery Scan Pulse Oximetry (%) 97 Oxygen Delivery Method Room Air Intake Visit Reasons: [place] severe pain when eating/[facility] Intake Note: Shaina presents in the office today for a ER Follow up due to severe pain when eating. Patient needs refills of her rosuvastatin and clopedagril. Allergies No Known Allergies Allergy (Verified 09/14/25 11:24) Medication List - Last Reconciled 09/14/25 by ARVIND Buchanan clopidogrel 75 mg PO DAILY 90 days enoxaparin (Lovenox) 80 mg subcut DAILY rosuvastatin 20 mg PO BEDTIME 90 days Tobacco use date assessed: 09/14/25 Fall risk assessment: No Falls in past year Last assessed Fall Risk: 09/14/25 Dental Screening Dental Screen Date: 09/14/25 Did you have a dental visit in the last 12 months?: Yes Did you have a dental problem in the last 6 months where you did not have access to dental care?: No Was dental information given to patient?: Patient has dentist HPI HPI Comments History of Present Illness Details 75-year-old female with a past medical h istory atherosclerotic vascular disease, heart murmur, tobacco use, mesenteric ischemia, hyperlipidemia presents for hospital follow up. She was initially seen here by my colleague 08/15/2025 with concerns of epigastric pain worsening postprandial a similar to when her mesenteric artery was blocked. Urgent CAT scan on 08/24/2025 demonstrated occluded stent and proximal superior mesenteric artery with distal recanalization and 50-60% stenosis secondary to mix plaques in the common iliac arteries. Cystic lesions measuring 8 cm and 0.5 cm were noted in the liver. Multifocal different sizes and less than 2 cm nonenhancing fluid density lesions were noted in the left kidney and a subcentimeter cyst in the right kidney. She is referred urgently to vascular surgery however she ended up going to [facility] for 2 days. CBC, CMP, lactate within normal. CT angiogram of the abdomen pelvis showed proximal SMA occlusion with distal reconstitution. No evidence of bowel ischemia was noted. She was seen by vascular surgery and they felt she was a poor candidate for endovascular recanalization due to the risk of embolism and recommended proximal right TRES to SMA bypass for revascularization. She had a bilateral lower extremity arterial duplex which showed only mild atherosclerotic plaques with no evidence of high-grade stenosis or occlusion. Smoking cessation was advised, but she is not ready to quit. Echocardiogram demonstrated mild hypertrophy, ejection fraction 60-65%, mild aortic stenosis, trace mitral regurgitation. Large hypoechoic 6.3 cm x 6.1 cm in size smooth structure in the liver again noted, possibly a liver cyst per report. It was also demonstrated on CTA. Patient confirms she is taking Lovenox daily, rosuvastatin and Plavix. Surgery is scheduled with Dr. Sanchez 09/20/25. Reports she has perioperative med instructions from vascular surgery. Heart rate initially elevated and decrease to 116. She felt very anxious, and she is also anxious about the procedure. She was not sure initially she was going to go through with it. She has healthcare anxiety. Her son lives locally, and she appreciates all the help from him. ROS: Constitutional: +weight loss. No fevers or chills or night sweats. ENT: No hearing loss, sneezing, congestion, runny nose or sore throat. Respiratory: No shortness of breath or hemoptysis Cardiovascular: Denies chest pain or shortness of breath Gastrointestinal: Denies vomiting, blood in stools, constipation, diarrhea. See HPI Psychiatric: See HPI Physical exam: Constitutional: Alert, in no distress. Eyes: Pupils are equal, round and reactive to light. Extraocular muscles intact. Ear, Nose and Throat: Canals clear. TMs normal. Normal nasal mucosa. No nasal discharge. No oral lesions. Neck: Supple, Full range of motion. No lymphadenopathy. No palpable masses. Respiratory: Clear to auscultation. Cardiovascular: S1 S2 regular. 2/6 systolic murmur. Gastrointestinal: Abdomen soft, non-tender, non-distended. Normal bowel sounds. No palpable masses. No rebound or guarding. Neurologic: No focal neurological deficits. Extremities: Warm and well perfused. No clubbing, cyanosis or edema. Intact peripheral pulses bilaterally [facility] Medical History (Updated 09/14/25 @ 13:48 by ARVIND Buchanan) Hospital discharge follow-up Aortic stenosis Liver cyst Renal cyst Bilateral iliac artery stenosis Abnormal mammogram Right-sided extracranial carotid artery stenosis Otitis externa, left Routine physical examination Atherosclerosis of both carotid arteries Surgical History History of heart artery stent Social History (Updated 09/14/25 @ 11:26 by Janet Deng CMA) Housing: House Alcohol intake: never Patient Tobacco Use Status: Former Tobacco user Cigarettes Per Day: 3 Years Smoked: 40 e-Cigarette/Vaping Use: Never Used Second Hand Smoke Exposure: Yes service: No Current occupational status: retired Current occupational exposures/hazards: No Cognitive needs: No Hearing needs: No Vision needs: Yes (Glasses) Questionnaire Thrive Questionnaire Date Thrive assessed: 03/06/25 I am a: Patient What is your living situation today?: I have a steady place to live Within the past 12 months, did the food you bought not last and you didn't have the money to get more?: Never true Within the past 12 months, did you worry whether your food would run out before you got money to buy more?: Never true Do you have trouble paying for medicines?: No Do you have trouble getting transportation to medical appointments?: Yes Do you have trouble paying your heating and electricity bill?: No Do you have trouble taking care of your child, family member or friend?: No Do you have trouble with day-to-day activities such as bathing, preparing meals, shopping, managing finances, etc.?: No Are you currently unemployed and looking for a job?: No Are you interested in more education?: No Please select the resources that you would like help with: None Currently or been in a relationship where the following occur: No concerns reported THRIVE Score: 1 CHAITANYA-7 AMB Questionnaire CHAITANYA-7 Date CHAITANYA - 7 assessed: 03/06/25 Source: Developed by Drs. Leonard Guerra, Jody Partida, Jorge Proctor and colleagues, with an educational aakash from [employer]. Physical exam (Primary Care) Vital Signs: Last Vital Signs Temp 98 F 09/14/25 11:26 Pulse 116 H 09/14/25 11:49 Resp 16 09/14/25 11:26 BP 116/64 09/14/25 11:26 Pulse Ox 97 09/14/25 11:26 Oxygen Delivery Method Room Air 09/14/25 11:26 BMI result Body Mass Index 24.5 Tobacco/Smoking Status: Tobacco use Status Tobacco use date assessed 09/14/25 09/14/25 11:29 Patient Tobacco Use Status Former Tobacco user 09/14/25 11:29 e-Cigarette/Vaping Use Never Used 09/14/25 11:29 Thrive Assessment: Date of Thrive Assessment Date Thrive assessed 03/06/25 09/14/25 11:29 Currently or been in a relationship where the following occur: No concerns reported Coding Level of Care Code Est Pt Level 5 (14775) Complex EM visit Add On G2211 Diagnoses Hospital discharge follow-up Z09 Liver cyst K76.89 Nonrheumatic aortic valve stenosis I35.0 Cardiac valve disease etiology: nonrheumatic Mesenteric ischemia K55.9 Renal cyst N28.1 Time Spent (min) 51 Comment Reviewing documentation, chart completion, direct patient care Assessment & Plan Assessment & Plan (1) Hospital discharge follow-up: Code(s): Z09 - Encounter for follow-up examination after completed treatment for conditions other than malignant neoplasm Category: Medical (2) Liver cyst: Code(s): K76.89 - Other specified diseases of liver Category: Medical (3) Aortic stenosis: Code(s): I35.0 - Nonrheumatic aortic (valve) stenosis Category: Medical Qualifiers: Cardiac valve disease etiology: nonrheumatic Qualified Code(s): I35.0 - Nonrheumatic aortic (valve) stenosis (4) Mesenteric ischemia: Code(s): K55.9 - Vascular disorder of intestine, unspecified Category: Medical (5) Renal cyst: Code(s): N28.1 - Cyst of kidney, acquired Category: Medical Plan In summary this is a 75-year-old female presenting for hospital follow up after evaluation for epigastric pain demonstrated occlusion of proximal SMA. Surgery is planned 09/20/[address] Sanchez. Incidental findings of hepatic cyst and renal cysts. We will arrange for ultrasounds for re-evaluation after surgery. She would like to hold off on referrals to other specialists at this time and get through her surgery. She has mild aortic stenosis. I will discuss referring to cardiology for surveillance. She will schedule a follow up with me in 8 weeks. We will readdress smoking cessation at that time. Orders: Orders US abdomen limited 6 Weeks K76.89 - Other specified diseases of liver US retroperitoneal comp 6 Weeks N28.1 - Cyst of kidney, acquired
[2025-09-14 11:26] VITALS: BP 116/64; PULSE 130; RESP 16; TEMP 36.6; O2SAT 97; BMI 24.5
[2025-09-14 11:49] VITALS: PULSE 116
--- OUTSIDE RECORDS SUMMARY | 2025-09-14 14:22 | XMS_ITS | Clinical Summary ---
Author Organization [address] [place] [address] [place] [phone] Phone Care Team Providers Care Product Examiner Name Role Phone Kumar Edwards SERENA Primary Care Provider [phone] Allergies No known active allergies Medications rosuvastatin (CRESTOR) 20 mg tablet Take 1 tablet (20 mg total) by mouth at bedtime. at bedtime. 06/05/2025 Active omeprazole (PriLOSEC) [address] capsule Take 1 capsule (20 mg total) by mouth 1 (one) time each day. 08/17/2025 Active clopidogreL (PLAVIX) 75 mg tablet Take 1 tablet (75 mg total) by mouth 1 (one) time each day. 06/05/2025 Active enoxaparin (LOVENOX) 80 mg/0.8 mL syringe Inject 0.9 mL (90 mg total) under the skin 1 (one) time each day. 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) 09/01/2025 Encounters Date Type Department Care Team Description 09/07/2025 Telephone Vascular Surgery [address] [phone] Ha Sanchez MD 09/07/2025 Telephone Vascular Surgery [address] [phone] Phuong Carcamo MD 09/06/2025 11:30 AM EST Office Visit Vascular Surgery [address] [phone] Phuong Carcamo MD Left carotid artery occlusion (Primary Dx); Occlusion of superior mesenteric artery ([facility] [place]24); Asymptomatic bilateral carotid artery stenosis 09/01/2025 2:22 PM EDT - 09/03/2025 12:58 PM EST Hospital Encounter [facility] [address] [place] [phone] Jesu Fernandez MD Landry, Jonathan P, MD Bukalo, Nermina, MD Surendran, Anupama, MD Occlusion of superior mesenteric artery ([facility] V24) (Primary Dx); Abdominal pain, unspecified abdominal location; Bilateral iliac artery aneurysm ([facility] V24); CMI (chronic mesenteric ischemia) ([facility] V24) Discharge Disposition: Home-Health Care Svc from Last 3 Months Surgical History Surgery Date Site/Laterality Comments SUPERIOR MESTENTERIC ARTERY STENT Medical History Medical History Date Comments Occlusion of superior mesenteric artery ([facility] V24) Hyperlipidemia Nicotine dependence Family History Medical History Relation Name Comments Peripheral vascular disease Other Relation Name Status Comments Other Social History Tobacco Use Types Packs/Day Years Used Date Smoking Tobacco: Every Day Cigarettes Smokeless Tobacco: Never Tobacco Cessation:Ready to Q uit: Not Asked; Counseling Given: Not Answered Alcohol Use Standard Drinks/Week Comments Not Currently 0 (1 standard drink = 0.6 oz pur e alcohol) Housing Instability Answer Date Recorde d Are you worried that in the next 2 months you may not have stable housing? No 09/01/2025 Food Access & Nutrition Answer Date Rec orded Do you have access to a vari ety of food including fruits and vegetables? Yes 09/01/2025 Access to Healthcare Answer Date Record ed Within the last 3 months, ho w many times did you visit the emergency department for your medical care? 0 09/01/2025 Health Literacy Answer Date Recorded How often do you need to hav e someone help you when you read instructions, pamphlets, or other written material from your doctor or pharmacy? Never 09/01/2025 Caregiver: How often do you need to have someone help you when you read instructions, pamphlets, or other written material from your doctor or pharmacy? Not on file 09/01/2025 Financial Risk Answer Date Recorded How hard is it for you to pa y for the very basics like food, housing, medical care, and air conditioning / heating? Not very hard 09/01/2025 Transportation Answer Date Recorded Has the lack of transportati on kept you from meetings, work, or from getting things needed for daily living? No Has the lack of transportati on kept you from medical appointments or from getting medications? No 09/01/2025 Social Isolation Answer Date Recorded How often do you feel lonely or isolated from th ose around you? Never 09/01/2025 Food Risk Answer Date Recorded Within the past 12 months we worried whether our food would run out before we got money to buy more. Never true 09/01/2025 Within the past 12 months th e food we bought just didn't last and we didn't have money to get more. Never true 09/01/2025 Dependent Care Answer Date Recorded Do you need help finding or paying for care for your loved ones. For example, child care teacher or elderly care for an older adult? No 09/01/2025 Education Answer Date Recorded Do you think completing more education or training, like finishing a GED, going to college, or learning a trade, would be helpful for you? No 09/01/2025 Employment and Income Answer Date Recor ded During the last four weeks, have you been actively looking for work? No 09/01/2025 Living Situation Answer Date Recorded What is your living situation? Unrecognized valu e 09/01/2025 Interpersonal Safety Answer Date Record ed Physical Abuse Unrecognized value 09/01/2025 Verbal Abuse Unrecognized value 09/01/2025 Comments Unknown Sex and Gender Information Value Date Recorded Sex Assigned at Female 09/07/2025 11:35 AM EST Legal Sex Female 11:36 AM EDT Gender Identity Not on file Sexual Orientation Not on file Obstetrics History Last Filed Vital Signs Vital Sign Reading Time Taken Comments Blood Pressure 144/85 09/06/2025 11:17 AM EST Pulse 98 09/06/2025 11:17 AM EST Temperature 36.7 C (98.1 F) 09/03/2025 8:19 AM EST Respiratory Rate 18 09/03/2025 8:19 AM EST Oxygen Saturation 99% 09/03/2025 8:19 AM EST Inhaled Oxygen Concentration - - Weight 63.3 kg (139 lb 9.6 oz) 09/06/2025 11:17 AM EST Height 162.6 cm (5' 4 ) 09/03/2025 11:55 AM EST Body Mass Index 23.96 09/03/2025 11:55 AM EST Plan of Treatment Upcoming Encounters Date Type Department Care Team (Latest Contact Info) Description 09/20/2025 11:00 AM EST Hospital Encounter [facility] Main OR [address] [place] [phone] Ha Sanchez MD [address] [place] [phone] 09/20/2025 11:00 AM EST - 09/20/2025 3:00 PM EST Surgery [facility] Main OR [address] [place] [phone] Ha Sanchez MD [address] [place] [phone] MESENTERIC ARTERY BYPASS [[id number] (CPT )] 09/23/2025 12:30 PM EST Appointment [facility] Ultrasound [address] [place] [phone] Scheduled Procedures Name Priority Associated Diagnoses Date/Ti me BYPASS ARTERY MESENTERIC 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) 09/20/2025 11:00 AM EST Health Maintenance Due Date Last Done Comments Pneumococcal Vaccine: 50+ Years (1 of 2 - PCV) 02/04/1969 Depression Screening 11/02/2024 Cholesterol Screening (Lipid Panel) 03/22/2025 Hepatitis C Screening 03/22/2025 Medicare Annual Wellness Visit 03/22/2025 Osteoporosis Screening (Bone Density Screening) 03/22/2025 DTaP,Tdap,and Td Vaccines (3 - Td or Tdap) 04/09/2025 04/09/2015, 04/11/2005 COVID-19 Vaccine ( season) 2025 09/01/2024, 08/10/2023, 08/06/2022, Additional history exists Influenza Vaccine (#1) 2025 4, 07/27/2023, 07/16/2022, Additional history exists Social Influencers of Health Screening 09/01/2026 09/01/2025 Falls Risk Assessment 09/03/2026 09/03/2025 Hypertension/CHF/CAD Annual BMP Blood Test 09/11/2026 09/11/2025, 09/03/2025, 09/02/2025, Additional history exists Zoster Vaccines Completed 04/28/2023, 02/13/2023 RSV Immunization Adult Patients Completed 08/21/2023 HIB Vaccines Aged Out No longer eligi ble based on patient's age to complete this topic HPV Vaccines Aged Out No longer eligi ble based on patient's age to complete this topic Hepatitis A Vaccines Aged Out No long er eligible based on patient's age to complete this topic Hepatitis B Vaccines Aged Out No long er eligible based on patient's age to complete this topic IPV Vaccines Aged Out No longer eligi ble based on patient's age to complete this topic MMR Vaccines Aged Out No longer eligi ble based on patient's age to complete this topic Meningococcal ACWY Vaccine Aged Out N o longer eligible based on patient's age to complete this topic Meningococcal B Vaccine Aged Out No l onger eligible based on patient's age to complete this topic RSV Immunization Patients Under 20 months Aged Out No longer eligible based on patient's age to complete this topic Varicella Vaccines Aged Out No longer eligible based on patient's age to complete this topic Goals Goal Patient Goal Type Associated Problems Recent Progress Patient-Stated? 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) MAGNESIUM Routine 09/11/2025 12:24 PM EST 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) PROTHROMBIN TIME WITH INR Routine 09/11/2025 12:24 PM EST 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) ACTIVATED PARTIAL THROMBOPLASTIN TIME Routine 09/11/2025 12:24 PM EST 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) TYPE AND SCREEN Routine 09/11/2025 12:24 PM EST 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) TRANSTHORACIC ECHOCARDIOGRAM (TTE) COMPLETE Routine 09/03/2025 11:55 AM EST 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) VAS US DUPLEX LOWER EXT ARTERY BILAT Routine 09/03/2025 10:30 AM EST 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) HEPARIN AND LOW MOLECULAR WEIGHT ANTI XA LEVEL Routine 09/03/2025 6:25 AM EST CBC WITH AUTO DIFFERENTIAL Routine 09/03/2025 6:24 AM EST CBC AND DIFFERENTIAL Routine 09/03/2025 6:24 AM EST BASIC METABOLIC PANEL Routine 09/03/2025 6:24 AM EST COMPLETE BLOOD COUNT Routine 09/02/2025 5:38 AM EDT BASIC METABOLIC PANEL Routine 09/02/2025 5:38 AM EDT HEPARIN AND LOW MOLECULAR WEIGHT ANTI XA LEVEL STAT 09/02/2025 5:38 AM EDT HEPARIN AND LOW MOLECULAR WEIGHT ANTI XA LEVEL STAT 09/01/2025 11:[address] ANGIO ABDOMEN PELVIS WO AND/OR W CONTRAST STAT 09/01/2025 4:21 PM EDT Abdominal pain, unspecified abdominal location 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) LACTATE, WITH REFLEX STAT 09/01/2025 3:19 PM EDT HEPARIN AND LOW MOLECULAR WEIGHT ANTI XA LEVEL STAT Add-on 09/01/2025 2:53 PM EDT ACTIVATED PARTIAL THROMBOPLASTIN TIME STAT 09/01/2025 2:53 PM EDT PROTHROMBIN TIME WITH INR STAT 09/01/2025 2:53 PM EDT CBC WITH AUTO DIFFERENTIAL STAT 09/01/2025 2:53 PM EDT COMPREHENSIVE METABOLIC PANEL STAT 09/01/2025 2:53 PM EDT CBC AND DIFFERENTIAL STAT 09/01/2025 2:53 PM EDT from Last 3 Months Results * ECG 12 lead - Procedural (No Charge) (09/11/2025 12:39 PM EST) Ventricular Rate ECG 78 BPM GEMUSE Atrial Rate 78 BPM GEMUSE P-R Interval 216 ms GEMUSE QRS Duration 78 ms GEMUSE Q-T Interval 374 ms GEMUSE QTc 426 ms GEMUSE P Wave Lindley 72 degrees GEMUSE R Lindley 53 degrees GEMUSE T Lindley 53 degrees GEMUSE ECG Interpretation Sinus rhythm with 1st degree A-V block Anterior infarct , age undetermined Abnormal ECG No previous ECGs available Confirmed by MD Howie, Mahendra ([id number]) on 09/11/2025 5:14:02 PM GEMUSE 09/11/2025 12:3 9 PM EST 09/11/2025 5:14 PM EST us Diane SAMUELS ECG ORDERABLES Final Result GEMUSE * CBC auto differential (09/11/2025 12:26 PM EST) Only the most recent of3 resultswithin the time period is included. [facility] Signature WBC 8.0 4.8 - 10.8 K/mcL LAB HEMETOLOGY METHOD 09/11/2025 2:26 PM [facility] RBC 4.30 3.80 - 4.80 M/mcL LAB HEMETOLOGY METHOD 09/11/2025 2:26 PM [facility] Hemoglobin 13.3 11.5 - 16.0 g/dL LAB HEMETOLOGY METHOD 09/11/2025 2:26 PM [facility] Hematocrit 39.0 35.0 - 47.0 % LAB HEMETOLOGY METHOD 09/11/2025 2:26 PM [facility] MCV 90.9 79.0 - 98.0 FL LAB HEMETOLOGY METHOD 09/11/2025 2:26 PM [facility] MCH 31.0 27.0 - 32.0 pcg LAB HEMETOLOGY METHOD 09/11/2025 2:26 PM [facility] MCHC 34.1 32.0 - 37.0 g/dL LAB HEMETOLOGY METHOD 09/11/2025 2:26 PM [facility] RDW 13.4 11.0 - 15.0 % LAB HEMETOLOGY METHOD 09/11/2025 2:26 PM [facility] Platelets 279 130 - 400 K/mcL LAB HEMETOLOGY METHOD 09/11/2025 2:26 PM [facility] MPV 10.2 7.0 - 11.0 FL LAB HEMETOLOGY METHOD 09/11/2025 2:26 PM [facility] NRBC 0.0 <1.0 % LAB HEMETOLOGY METHOD 09/11/2025 2:26 PM [facility] NRBC Absolute 0.00 <0.10 K/mcL LAB HEMETOLOGY METHOD 09/11/2025 2:26 PM [facility] Neutrophils Relative 68.9 % LAB HEMETOLOGY METHOD 09/11/2025 2:26 PM [facility] Lymphocytes Relative 21.7 % LAB HEMETOLOGY METHOD 09/11/2025 2:26 PM [facility] Monocytes Relative 7.5 % LAB HEMETOLOGY METHOD 09/11/2025 2:26 PM [facility] Eosinophils Relative 1.1 % LAB HEMETOLOGY METHOD 09/11/2025 2:26 PM [facility] Basophils Relative 0.4 % LAB HEMETOLOGY METHOD 09/11/2025 2:26 PM [facility] Immature Granulocytes Relative 0.4 % LAB HEMETOLOGY METHOD 09/11/2025 2:26 PM [facility] Neutrophils Absolute 5.53 1.50 - 7.00 K/mcL LAB HEMETOLOGY METHOD 09/11/2025 2:26 PM [facility] Lymphocytes Absolute 1.74 1.00 - 5.00 K/mcL LAB HEMETOLOGY METHOD 09/11/2025 2:26 PM [facility] Monocytes Absolute 0.60 0.20 - 1.00 K/mcL LAB HEMETOLOGY METHOD 09/11/2025 2:26 PM [facility] Eosinophils Absolute 0.09 0.00 - 0.50 K/mcL LAB HEMETOLOGY METHOD 09/11/2025 2:26 PM [facility] Basophils Absolute 0.03 0.00 - 0.20 K/mcL LAB HEMETOLOGY METHOD 09/11/2025 2:26 PM [facility] Immature Granulocytes Absolute 0.03 0.00 - 0.03 K/mcL LAB HEMETOLOGY METHOD 09/11/2025 2:26 PM EST [facility] Blood Venous blood specimen / Unknown Venipuncture / Unknown 09/11/2025 12:26 PM EST 09/11/2025 1:52 PM EST Ha Sanchez MD LAB BLOOD ORDERABLES Final Resu lt [facility] [address] [place] [address], [place] [phone] * Recheck blood typing (09/11/2025 12:24 PM EST) ABO Group A 09/11/2025 4:35 PM EST [facility] Rh Type Positive 09/11/2025 4:35 PM EST [facility] Blood Venous blood specimen / Unknown Venipuncture / Unknown 09/11/2025 12:24 PM EST 09/11/2025 1:52 PM EST us Diane SAMUELS LAB BLOOD BANK TEST ORDERABLE S Final Result Performing Organization Address [facility] Co de Phone Number [facility] [address] [place] [address], [place] [phone] * Activated partial thromboplastin time (09/11/2025 12:24 PM EST) Only the most recent of2 resultswithin the time period is included. aPTT 30.7 24.1 - 39.3 sec LAB COAGULATION METHOD 09/11/2025 2:20 PM EST [facility] Blood Venous blood specimen / Unknown Venipuncture / Unknown 09/11/2025 12:24 PM EST 09/11/2025 1:52 PM EST us Diane SAMUELS LAB BLOOD ORDERABLES Final Re sult Performing Organization Address City/[facility]/ZIP Co de Phone Number [facility] [address] [place] [address], [place] [phone] * Prothrombin time with INR (09/11/2025 12:24 PM EST) Only the most recent of2 resultswithin the time period is included. [facility] Protime 11.3 10.6 - 13.9 sec LAB COAGULATION METHOD 09/11/2025 2:20 PM EST [facility] INR 0.9 LAB COAGULATION METHOD 09/11/2025 2:20 PM EST [facility] Blood Venous blood specimen / Unknown Venipuncture / Unknown 09/11/2025 12:24 PM EST 09/11/2025 1:52 PM EST us Diane SAMULES LAB BLOOD ORDERABLES Final Re sult [facility] [address] [place] [address], [place] [phone] * Type and screen (09/11/2025 12:24 PM EST) [facility] ABO Group A 09/11/2025 2:43 PM EST [facility] Rh Type Positive 09/11/2025 2:43 PM EST [facility] Antibody Screen Negative 09/11/2025 2:43 PM EST [facility] Blood Venous blood specimen / Unknown Venipuncture / Unknown 09/11/2025 12:24 PM EST 09/11/2025 1:52 PM EST us Diane SAMUELS LAB BLOOD BANK TEST ORDERABLE S Final Result [facility] [address] [place] [address], [place] [phone] * Magnesium (09/11/2025 12:24 PM EST) [facility] Magnesium 2.0 1.9 - 2.6 mg/dL LAB CHEMISTRY METHOD 09/11/2025 5:26 PM [facility] Blood Venous blood specimen / Unknown Venipuncture / Unknown 09/11/2025 12:24 PM EST 09/11/2025 1:52 PM EST us Diane SAMUELS LAB BLOOD ORDERABLES Final Re sult [facility] [address] [place] [address], [place] [phone] * CMP (09/11/2025 12:24 PM EST) Only the most recent of2 resultswithin the time period is included. Sodium 137 133 - 145 mmol/L LAB CHEMISTRY METHOD 09/11/2025 5:27 PM [facility] Potassium 4.3 3.5 - 5.5 mmol/L LAB CHEMISTRY METHOD 09/11/2025 5:27 PM [facility] Chloride 104 96 - 110 mmol/L LAB CHEMISTRY METHOD 09/11/2025 5:27 PM [facility] CO2 27 21 - 32 mmol/L LAB CHEMISTRY METHOD 09/11/2025 5:27 PM [facility] Anion Gap 6 3 - 11 LAB CHEMISTRY METHOD 09/11/2025 5:27 PM [facility] Glucose 95 70 - 100 mg/dL LAB CHEMISTRY METHOD 09/11/2025 5:27 PM [facility] BUN 11 5 - 25 mg/dL LAB CHEMISTRY METHOD 09/11/2025 5:27 PM [facility] Creatinine 0.56 0.50 - 1.10 mg/dL LAB CHEMISTRY METHOD 09/11/2025 5:27 PM [facility] eGFR 95 >=60 mL/min/1. 73m2 LAB CHEMISTRY METHOD 09/11/2025 5:27 PM [facility] Comment:Calculation based on the Chronic Kidney Disease Epidemiology Collaboration (CKD-EPI) equation refit without adjustment for race. BUN/Creatinine Ratio 19.6 LAB CHEMISTRY METHOD 09/11/2025 5:27 PM [facility] Calcium 9.8 8.5 - 10.5 mg/dL LAB CHEMISTRY METHOD 09/11/2025 5:27 PM [facility] AST (SGOT) 16 10 - 42 unit/L LAB CHEMISTRY METHOD 09/11/2025 5:27 PM [facility] ALT (SGPT) 23 10 - 60 unit/L LAB CHEMISTRY METHOD 09/11/2025 5:27 PM [facility] Alkaline Phosphatase 77 42 - 121 unit/L LAB CHEMISTRY METHOD 09/11/2025 5:27 PM [facility] Total Protein 6.7 6.0 - 8.0 g/dL LAB CHEMISTRY METHOD 09/11/2025 5:27 PM [facility] Albumin 3.8 3.2 - 5.0 g/dL LAB CHEMISTRY METHOD 09/11/2025 5:27 PM [facility] Total Bilirubin 0.3 0.0 - 1.4 mg/dL LAB CHEMISTRY METHOD 09/11/2025 5:27 PM [facility] Blood Venous blood specimen / Unknown Venipuncture / Unknown 09/11/2025 12:24 PM EST 09/11/2025 1:52 PM EST us Diane SAMUELS LAB BLOOD ORDERABLES Final Re sult [facility] [address] [place] [address], * (ABNORMAL) TRANSTHORACIC ECHOCARDIOGRAM (TTE) COMPLETE (09/03/2025 11:55 AM EST) Left Atrium Minor Lindley 4.6 cm CV PACS Left Atrium Major Lindley 4.6 cm CV PACS LA Area Sys (A2C) 14 cm2 CV PACS LA Area Sys (A4C) 15 cm2 CV PACS LA Volume (BP) 34 mL CV PACS AV Mean Gradient 13 mmHg CV PACS Ao VTI 56.3 cm CV PACS AV Peak Florentin 2.4 m/s CV PACS AV Peak Gradient 24 mmHg CV PACS AV Area Continuity Equation 1.1 cm2 CV PACS AV Area Peak Velocity 1.2 cm2 CV PACS Aortic Sinus Valsalva 3.2 cm CV PACS Ascending Aorta 3.3 cm CV PACS IVSD 1.1(A) 0.6 - 0.9 cm CV PACS LVIDD 3.9 3.8 - 5.2 cm CV PACS LVIDS 2.7 2.2 - 3.5 cm CV PACS LVOT Diameter 1.8 cm CV PACS LVOT Mean Florentin 0.7 m/s CV PACS LVOT Mean Grad 2 mmHg CV PACS LVOT Peak VTI 24.6 cm CV PACS LVOT Peak Florentin 1.2 m/s CV PACS LVOT Peak Gradient 5 mmHg CV PACS LVPWD 1.0(A) 0.6 - 0.9 cm CV PACS MV E' Tissue Velocity Lateral 7 cm/s CV PACS MV E' Tissue Velocity Septal 5 cm/s CV PACS LVOT Area 2.5 cm2 CV PACS LVOT Stroke Volume 62 mL CV PACS E Wave Deceleration Time 331(A) 119 - 242 ms CV PACS MV Peak A Florentin 1.23 m/s CV PACS MV Peak E Florentin 0.96 m/s CV PACS RV S' 11 cm/s CV PACS TAPSE 20 mm CV PACS LVOT Stroke Index 39 mL/m2 CV PACS Relative Wall Thickness ratio 0.51 CV PACS LVOT:AV VTI Index 0.44 CV PACS FS 31 % CV PACS LV Mass 2D 131 g CV PACS Ascending Aorta Index 2.05 cm/m2 CV PACS LVOT flow 178 mL/s CV PACS SINGH Index (VTI) 0.69 cm2/m2 CV PACS SINGH Index (Pk Florentin) 0.75 cm2/m2 CV PACS LVIDD Index 2.42 cm/m2 CV PACS LVIDS Index 1.68 cm/m2 CV PACS AV Velocity Ratio 0.50 CV PACS LA Volume Index (BP) 21 mL/m2 CV PACS LV Mass Index 2D 81 g/m2 CV PACS BSA 1.61 m2 CV PACS E/A Ratio 0.8 0.8 - 2.0 CV PACS E/E' Ratio Septal 19 CV PACS E/E' Ratio Lateral 14 CV PACS E/E' Ratio Averaged 16 CV PACS Anatomical Region Laterality Modality Ultrasound Narrative 09/04/2025 8:18 AM EST Left ventricle cavity size is normal. There is mild hypertrophy. Systolic function is normal with an ejection fraction of 60-65%. There are no regional LV wall motion abnormalities. Indeterminate diastolic function. Right ventricle cavity is normal. Right ventricular systolic function is normal. Mild aortic valve stenosis. Right ventricular systolic pressure cannot be obtained. There is a large hypoechoic, 6.3 cm x 6.1 cm in size, smooth border structure in the liver, a possible liver cyst. No prior study for comparison. Left Ventricle Left ventricle cavity size is normal. There is mild hypertrophy. Systolic function is normal with an ejection fraction of 60-65%. There are no regional LV wall motion abnormalities. Indeterminate diastolic function. Right Ventricle Right ventricle cavity appears normal. Systolic function is normal. Left Atrium Left atrium cavity size is normal. Right Atrium Right atrium cavity is normal. IVC/SVC Inferior vena cava structure is normal. Mitral Valve The leaflets are mildly thickened. There is mild annular calcification. There is trace regurgitation. There is no evidence of mitral valve stenosis. Tricuspid Valve Tricuspid valve structure is normal. There is no regurgitation or stenosis. Cannot assess RVSP. Aortic Valve The leaflets are mildly calcified. There is no regurgitation. There is mild stenosis. Pulmonic Valve The pulmonic valve was not well visualized. There is no regurgitation or stenosis. Ascending Aorta The aorta was not well visualized. Pericardium Pericardium appears normal. There is no pericardial effusion. There is a large hypoechoic, 6.3 cm x 6.1 cm in size, smooth border structure in the liver, a possible liver cyst. Study Details Overall the study quality was adequate. us Joy Thrasher MD CV ECHO PROCEDURES Final Re sult * Vascular US duplex lower extremity arteries bilateral (09/03/2025 10:30 AM EST) Anatomical Region Laterality Modality Vascular, Abdomen Ultrasound 09/03/2025 10:4 0 AM EST Impressions 09/03/2025 10:49 AM EST Bilateral leg: Mild atherosclerotic plaques. No grayscale or Doppler evidence of high-grade stenosis or occlusion. -------- FINAL REPORT -------- Dictated By: Michael Vasquez Dictated Date: 09/03/2025 10:40 ET Assigned Physician: Michael Vasquez Reviewed and Electronically Signed By: Michael Vasquez Signed Date: 09/03/2025 10:49 ET Workstation ID: [id number] Transcribed By: Self Edit Transcribed Date: 09/03/2025 10:40 ET Narrative 09/03/2025 10:49 AM EST INDICATION: Peripheral vascular disease. SMA occlusion TECHNIQUE: Arterial duplex imaging obtained of the bilateral lower extremity. Additional technique: None Prior relevant imaging studies: None Doppler arterial waveforms were obtained throughout both lower extremities Color signal throughout the right common femoral artery. There are some calcified plaques but no grayscale evidence of significant luminal narrowing. No grayscale evidence of significant luminal narrowing in the right SFA. There is a small focal calcified plaque in the distal right popliteal artery. Color signal present with arterial waveforms obtained from the runoff of the right lower extremity. Color signal present in the left common femoral artery with arterial waveforms obtained. There is a focal calcified plaque in the left common femoral artery without engel still evidence of significant luminal narrowing. There is a focal calcified plaque at the bifurcation of the left common femoral artery region. No grayscale evidence of high-grade narrowing. Mild atherosclerotic disease in the left SFA. The left popliteal artery appears widely patent. Color signal present and arterial waveforms obtained in the runoff vessels of the left lower extremity. Some collateral arterial flow is visualized. RIGHT lower extremity: COMMON FEMORAL ARTERY: Velocity: 200 cm/s Normal velocities and waveform. PROFUNDA FEMORAL ARTERY: Proximal Velocity: 142 cm/s Normal velocities and waveform. SUPERFICIAL FEMORAL ARTERY: Proximal Velocity: 113 cm/s Normal velocities and waveform. Mid Velocity: 117 cm/s Normal velocities and waveform. Distal Velocity: 84 cm/s Normal velocities and waveform. POPLITEAL ARTERY: Proximal Velocity: 81 cm/s Normal velocities and waveform. Mid Velocity: 71 cm/s Normal velocities and waveform. Distal Velocity: 61 cm/s Normal velocities and waveform. POSTERIOR TIBIAL ARTERY: Proximal Velocity: 67 cm/s Normal velocities and waveform. Mid Velocity: 43 cm/s Normal velocities and waveform. Distal Velocity: 84 cm/s Normal velocities and waveform. ANTERIOR TIBIAL ARTERY: Proximal Velocity: 105 cm/s Normal velocities and waveform. Mid Velocity: 77 cm/s Normal velocities and waveform. Distal Velocity: 79 cm/s Normal velocities and waveform. LEFT lower extremity: COMMON FEMORAL ARTERY: Velocity: 116 cm/s Normal velocities and waveform. PROFUNDA FEMORAL ARTERY: Proximal Velocity: 76 cm/s Normal velocities and waveform. SUPERFICIAL FEMORAL ARTERY: Proximal Velocity: 161 cm/s Normal velocities and waveform. Mid Velocity: 104 cm/s Normal velocities and waveform. Distal Velocity: 80 cm/s Normal velocities and waveform. POPLITEAL ARTERY: Proximal Velocity: 74 cm/s Normal velocities and waveform. Mid Velocity: 63 cm/s Normal velocities and waveform. Distal Velocity: 93 cm/s Normal velocities and waveform. POSTERIOR TIBIAL ARTERY: Proximal Velocity: 67 cm/s Normal velocities and waveform. Mid Velocity: 72 cm/s Normal velocities and waveform. Distal Velocity: 68 cm/s Normal velocities and waveform. ANTERIOR TIBIAL ARTERY: Proximal Velocity: 98 cm/s Normal velocities and waveform. Mid Velocity: 79 cm/s Normal velocities and waveform. Distal Velocity: 61 cm/s Normal velocities and waveform. Procedure Note Michael Vasquez MD - 09/03/2025 INDICATION: Peripheral vascular disease. SMA occlusion TECHNIQUE: Arterial duplex imaging obtained of the bilateral lowerextremity. Additional technique: None Prior relevant imaging studies: None Doppler arterial waveforms were obtained throughout both lowerextremities Color signal throughout the right common femoral artery. There are somecalcified plaques but no grayscale evidence of significant luminalnarrowing. No grayscale evidence of significant luminal narrowing in the right SFA.There is a small focal calcified plaque in the distal right poplitealartery. Color signal present with arterial waveforms obtained from the runoff ofthe right lower extremity. Color signal present in the left common femoral artery with arterialwaveforms obtained. There is a focal calcified plaque in the left commonfemoral artery without engel still evidence of significant luminalnarrowing. There is a focal calcified plaque at the bifurcation of theleft common femoral artery region. No grayscale evidence of high-gradenarrowing. Mild atherosclerotic disease in the left SFA. The left popliteal arteryappears widely patent. Color signal present and arterial waveformsobtained in the runoff vessels of the left lower extremity. Somecollateral arterial flow is visualized. RIGHT lower extremity: COMMON FEMORAL ARTERY: Velocity: 200 cm/s Normal velocities and waveform. PROFUNDA FEMORAL ARTERY: Proximal Velocity: 142 cm/s Normal velocities and waveform. SUPERFICIAL FEMORAL ARTERY: Proximal Velocity: 113 cm/s Normal velocities and waveform. Mid Velocity: 117 cm/s Normal velocities and waveform. Distal Velocity: 84 cm/s Normal velocities and waveform. POPLITEAL ARTERY: Proximal Velocity: 81 cm/s Normal velocities and waveform. Mid Velocity: 71 cm/s Normal velocities and waveform. Distal Velocity: 61 cm/s Normal velocities and waveform. POSTERIOR TIBIAL ARTERY: Proximal Velocity: 67 cm/s Normal velocities and waveform. Mid Velocity: 43 cm/s Normal velocities and waveform. Distal Velocity: 84 cm/s Normal velocities and waveform. ANTERIOR TIBIAL ARTERY: Proximal Velocity: 105 cm/s Normal velocities and waveform. Mid Velocity: 77 cm/s Normal velocities and waveform. Distal Velocity: 79 cm/s Normal velocities and waveform. LEFT lower extremity: COMMON FEMORAL ARTERY: Velocity: 116 cm/s Normal velocities and waveform. PROFUNDA FEMORAL ARTERY: Proximal Velocity: 76 cm/s Normal velocities and waveform. SUPERFICIAL FEMORAL ARTERY: Proximal Velocity: 161 cm/s Normal velocities and waveform. Mid Velocity: 104 cm/s Normal velocities and waveform. Distal Velocity: 80 cm/s Normal velocities and waveform. POPLITEAL ARTERY: Proximal Velocity: 74 cm/s Normal velocities and waveform. Mid Velocity: 63 cm/s Normal velocities and waveform. Distal Velocity: 93 cm/s Normal velocities and waveform. POSTERIOR TIBIAL ARTERY: Proximal Velocity: 67 cm/s Normal velocities and waveform. Mid Velocity: 72 cm/s Normal velocities and waveform. Distal Velocity: 68 cm/s Normal velocities and waveform. ANTERIOR TIBIAL ARTERY: Proximal Velocity: 98 cm/s Normal velocities and waveform. Mid Velocity: 79 cm/s Normal velocities and waveform. Distal Velocity: 61 cm/s Normal velocities and waveform. IMPRESSION: Bilateral leg: Mild atherosclerotic plaques. No grayscale or Dopplerevidence of high-grade stenosis or occlusion. -------- FINAL REPORT -------- Dictated By: Michael Vasquez Dictated Date: 09/03/2025 10:40 ET Assigned Physician: Michael Vasquez Reviewed and Electronically Signed By: Michael Vasquez Signed Date: 09/03/2025 10:49 ET Workstation ID: [id number] Transcribed By: Self Edit Transcribed Date: 09/03/2025 10:40 ET us Joy Thrasher MD CV VASCULAR PROCEDURES Arabella l Result * Anti-Xa - Every 6 Hours (09/03/2025 6:25 AM EST) Only the most recent of4 resultswithin the time period is included. Heparin Anti-Xa 0.41 0.30 - 0.70 I Unit/mL LAB COAGULATION METHOD 09/03/2025 7:16 AM EST [facility] Blood Venous blood specimen / Unknown Venipuncture / Unknown 09/03/2025 6:25 AM EST 09/03/2025 6:53 AM EST Narrative [facility] - 09/03/2025 7:16 AM EST Therapeutic range listed is for Unfractionated Heparin. LMW Heparin therapeutic range: 0.50-1.20 IU/mL us Joy Thrasher MD LAB BLOOD ORDERABLES Final Result [facility] [address] [place] [address], * Basic metabolic panel (09/03/2025 6:24 AM EST) Only the most recent of2 resultswithin the time period is included. Sodium 139 133 - 145 mmol/L LAB CHEMISTRY METHOD 09/03/2025 7:46 AM EST [facility] Potassium 4.0 3.5 - 5.5 mmol/L LAB CHEMISTRY METHOD 09/03/2025 7:46 AM EST [facility] Chloride 109 96 - 110 mmol/L LAB CHEMISTRY METHOD 09/03/2025 7:46 AM EST [facility] CO2 23 21 - 32 mmol/L LAB CHEMISTRY METHOD 09/03/2025 7:46 AM [facility] Anion Gap 7 3 - 11 LAB CHEMISTRY METHOD 09/03/2025 7:46 AM [facility] Glucose 98 70 - 100 mg/dL LAB CHEMISTRY METHOD 09/03/2025 7:46 AM [facility] BUN 9 5 - 25 mg/dL LAB CHEMISTRY METHOD 09/03/2025 7:46 AM [facility] Creatinine 0.53 0.50 - 1.10 mg/dL LAB CHEMISTRY METHOD 09/03/2025 7:46 AM [facility] eGFR 96 >=60 mL/min/1. 73m2 LAB CHEMISTRY METHOD 09/03/2025 7:46 AM [facility] Comment:Calculation based on the Chronic Kidney Disease Epidemiology Collaboration (CKD-EPI) equation refit without adjustment for race. BUN/Creatinine Ratio 17.0 LAB CHEMISTRY METHOD 09/03/2025 7:46 AM [facility] Calcium 9.1 8.5 - 10.5 mg/dL LAB CHEMISTRY METHOD 09/03/2025 7:46 AM [facility] Blood Venous blood specimen / Unknown Venipuncture / Unknown 09/03/2025 6:24 AM EST 09/03/2025 6:53 AM EST Joy Thrasher MD LAB BLOOD ORDERABLES Final Result [facility] [address] [place] [address], * Complete blood count (09/02/2025 5:38 AM EDT) WBC 6.0 4.8 - 10.8 K/mcL LAB HEMETOLOGY METHOD 09/02/2025 6:24 AM EDT [facility] RBC 4.50 3.80 - 4.80 M/mcL LAB HEMETOLOGY METHOD 09/02/2025 6:24 AM EDT [facility] Hemoglobin 13.7 11.5 - 16.0 g/dL LAB HEMETOLOGY METHOD 09/02/2025 6:24 AM [facility] Hematocrit 40.6 35.0 - 47.0 % LAB HEMETOLOGY METHOD 09/02/2025 6:24 AM [facility] MCV 91.2 79.0 - 98.0 FL LAB HEMETOLOGY METHOD 09/02/2025 6:24 AM EDT [facility] MCH 30.8 27.0 - 32.0 pcg LAB HEMETOLOGY METHOD 09/02/2025 6:24 AM [facility] MCHC 33.7 32.0 - 37.0 g/dL LAB HEMETOLOGY METHOD 09/02/2025 6:24 AM [facility] RDW 13.7 11.0 - 15.0 % LAB HEMETOLOGY METHOD 09/02/2025 6:24 AM [facility] Platelets 231 130 - 400 K/[facility] LAB HEMETOLOGY METHOD 09/02/2025 6:24 AM [facility] MPV 9.9 7.0 - 11.0 FL LAB HEMETOLOGY METHOD 09/02/2025 6:24 AM [facility] NRBC 0.0 <1.0 % LAB HEMETOLOGY METHOD 09/02/2025 6:24 AM [facility] NRBC Absolute 0.00 <0.10 K/mcL LAB HEMETOLOGY METHOD 09/02/2025 6:24 AM [facility] Blood Venous blood specimen / Unknown Venipuncture / Unknown 09/02/2025 5:38 AM EDT 09/02/2025 5:55 AM EDT us Etta Arroyo MD LAB BLOOD ORDERABLES Final Res ult [facility] [address] [place] [address], [place] [phone] * CT Angio Abdomen Pelvis wo and/or w Contrast (09/01/2025 4:21 PM EDT) Anatomical Region Laterality Modality Body Computed Tomogra phy 09/01/2025 4:42 PM EDT Impressions 09/01/2025 4:46 PM EDT Impression: Proximal SMA occlusion with distal reconstitution. No evidence for bowel ischemia currently. -------- FINAL REPORT -------- Dictated By: Ita De La Cruz Dictated Date: 09/01/2025 16:42 ET Assigned Physician: Ita De La Cruz Reviewed and Electronically Signed By: Ita De La Cruz Signed Date: 09/01/2025 16:46 ET Workstation ID: [id number] Transcribed By: Self Edit Transcribed Date: 09/01/2025 16:42 ET Narrative 09/01/2025 4:[address] angiography abdomen and pelvis INDICATION: abdominal pain, cq SMA occlusion Comparison: None TECHNIQUE: CT angiography of the abdomen and pelvis following the intravenous administration of 100cc Isovue 370. Multiplanar reformats. The examination was performed utilizing dose reduction techniques. Total DLP Dose Vasculature: There is atherosclerotic plaque throughout the aorta and abdominal great vessels with an SMA stent which is occluded as well as the superior mesenteric artery just distal to the stent. There is reconstitution of flow of the distal mesenteric artery via collaterals. Nonvascular findings: Lung bases: Minimal atelectasis. Spleen: Normal. Pancreas: Normal. Liver: Large left hepatic liver cyst. Gallbladder/biliary: Normal. Adrenals: Normal. Kidneys: Liver cysts. No hydronephrosis. Bowel/mesentery: Fluid throughout the small bowel and descending colon which is nonspecific and can be seen in setting of gastroenteritis. Bowel loops enhance normally at this time. Lymph nodes: No pathologically enlarged lymph nodes. Bladder: Normal. Pelvic organs: Dilated gonadal veins with pelvic varicosities as can be seen in the setting of pelvic congestion Osseous structures: There are degenerative changes in the spine. Other: Procedure Note Ita De La Cruz MD - 09/01/2025 CT angiography abdomen and pelvis INDICATION: abdominal pain, cq SMA occlusion Comparison: None TECHNIQUE: CT angiography of the abdomen and pelvis following theintravenous administration of 100cc Isovue 370. Multiplanar reformats. Theexamination was performed utilizing dose reduction techniques. Total DLPDose Vasculature: There is atherosclerotic plaque throughout the aorta and abdominal greatvessels with an SMA stent which is occluded as well as the superiormesenteric artery just distal to the stent. There is reconstitution offlow of the distal mesenteric artery via collaterals. Nonvascular findings: Lung bases: Minimal atelectasis. Spleen: Normal. Pancreas: Normal. Liver: Large left hepatic liver cyst. Gallbladder/biliary: Normal. Adrenals: Normal. Kidneys: Liver cysts. No hydronephrosis. Bowel/mesentery: Fluid throughout the small bowel and descending colonwhich is nonspecific and can be seen in setting of gastroenteritis. Bowelloops enhance normally at this time. Lymph nodes: No pathologically enlarged lymph nodes. Bladder: Normal. Pelvic organs: Dilated gonadal veins with pelvic varicosities as can beseen in the setting of pelvic congestion Osseous structures: There are degenerative changes in the spine. Other: IMPRESSION: Impression: Proximal SMA occlusion with distal reconstitution. No evidence for bowelischemia currently. -------- FINAL REPORT -------- Dictated By: Ita De La Cruz Dictated Date: 09/01/2025 16:42 ET Assigned Physician: Ita De La Cruz Reviewed and Electronically Signed By: Ita De La Cruz Signed Date: 09/01/2025 16:46 ET Workstation ID: [id number] Transcribed By: Self Edit Transcribed Date: 09/01/2025 16:42 ET us Jesu Fernandez MD IM CT PROCEDURES Final Result * Lactate, with reflex (09/01/2025 3:19 PM EDT) LACTIC ACID 1.0 0.4 - 2.0 mmol/L LAB CHEMISTRY METHOD 09/01/2025 4:05 PM EDT [facility] Blood Venous blood specimen / Unknown Venipuncture / Unknown 09/01/2025 3:19 PM EDT 09/01/2025 3:30 PM EDT us Jesu Fernandez MD LAB BLOOD ORDERABLES Final Resu lt [facility] [place] ([facility]) [facility] [address] [place] [address], [place] [phone] from Last 3 Months Additional Health Concerns Active Problems Noted Date Diagnosed Date Autogenerated Problem 09/07/2025 [address] [place] [address] [employer] MEDICARE Advance Directives * Full Code - Confirmed (Latest Code Status on File) Date Activated Date Inactivated Comments 09/01/2025 8:02 PM 09/03/2025 3:34 PM This code s tatus was ascertained in the following way: Code status discussion: discussion with patient To update the patient's code status, place a code status order. Do not modify or discontinue any currently active code status orders. * Full Code - Default Date Activated Date Inactivated Comments 09/01/2025 5:57 PM 09/01/2025 8:02 PM This is or ashlie is used when code status has not been discussed with the patient, or code status is otherwise unknown/unconfirmed To update the patient's code status, place a code status order. Do not modify or discontinue any currently active code status orders. Care Teams Product Examiner Relationship Specialty Start Date End Date Kumar Edwards FNP [address] [place] [id number] PCP - General Family Medicine 09/08/25
== END 2025-09-14 12:02 | disposition home or self-care (01) ==
LOC: HO.HMCFM 11:18
PROVIDERS: PCP Physician Assistant Medical; Visit Provider Physician Assistant Medical
DX: K55.9 Vascular disorder of intestine, unspecified (principal); I35.0 Nonrheumatic aortic (valve) stenosis; K76.89 Other specified diseases of liver; N28.1 Cyst of kidney, acquired

== ENCOUNTER → 2025-09-14 11:17 | Outpatient (BNVA) | payer MEDICARE, SELFPAY | PROVIDERS: PCP Physician Assistant Medical; Visit Provider Physician Assistant Medical | DX: Z09 Encounter for follow-up examination after completed treatment for conditions other than malignant neoplasm (principal); K76.89 Other specified diseases of liver; I35.0 Nonrheumatic aortic (valve) stenosis; K55.9 Vascular disorder of intestine, unspecified; N28.1 Cyst of kidney, acquired; Z79.01 Long term (current) use of anticoagulants; Z79.02 Long term (current) use of antithrombotics/antiplatelets; Z79.899 Other long term (current) drug therapy | CPT/HCPCS: 99212 ==